=== PATIENT | female | born 1980 | race Two or more races ===

== ENCOUNTER 2016-07-30 21:01 | Emergency (ER) | payer OTHER ==
[2016-07-30 21:14] VITALS: BP 130/96
--- NOTE | 2016-07-30 21:25 | UC ---
Abdominal Pain Female HPI - HPI Summary HPI Summary: PT HAS HAD INTERMITTENT RUQ ABDOMINAL PAIN FOR SEVERAL MONTHS. NO CLEAR TRIGGER. DOES NOT SEEM TO BE ASSOCIATED WITH FOOD. SINCE YESTERDAY THE PAIN HAS GOTTEN A LOT WORSE AND IS RADIATING TO HER BACK. SHE HAS NAUSEA. NO FEVER. - History of Current Complaint Chief Complaint: UCAbdominalPain Stated Complaint: ABDOMINAL PAIN Time Seen by Provider: 07/30/16 21:16 Hx Obtained From: Patient Hx Last Menstrual Period: tubal, HYSTERECTOMY Onset/Duration: Gradual Onset, Lasting Days, Still Present Timing: Constant Severity Initially: Moderate Severity Currently: Moderate Pain Intensity: 8 Pain Scale Used: 0-10 Numeric Location: Discrete At: RUQ, Epigastric Radiates: Yes Radiates to: Back Character: Sharp Aggravating Factor(s): Nothing Alleviating Factor(s): Nothing Associated Signs and Symptoms: Positive: Back Pain, Nausea. Negative: Diaphoresis, Fever, Cough, Urinary Symptoms, Vomiting, Diarrhea Allergies/Adverse Reactions: Allergies Allergy/AdvReac Type Severity Reaction Status Date / Time No Known Allergies Allergy Verified 07/30/16 21:14 Home Medications: Home Medications Acetaminophen TAB* [Tylenol TAB*] 650 mg PO PRN 07/30/16 [History] PMH/Surg Hx/FS Hx/Imm Hx Previously Healthy: Yes Endocrine History Of: Denies: Thyroid Disease, Hyperthyroidism, Hypothyroidism, Dyslipidemia Comment Only: Diabetes - was taking metformin for fibroids in uterus Cardiovascular History Of: Denies: Cardiac Disorders, Hypertension, Pacemaker/ICD, Myocardial Infarction , Congestive Heart Failure, Atrial Fibrillation, Deep Vein Thrombosis, Bleeding Disorders Respiratory History Of: Denies: COPD, Asthma, Bronchitis, Pneumonia, Pulmonary Embolism GI/ History Of: Denies: Gastroesophageal Reflux, Ulcer, Gastrointestinal Bleed, Gall Bladder Disease, Kidney Stones, Diverticulitis, Renal Disease, Urosepsis Neurological History Of: Denies: TIA, CVA, Dementia, Seizures, Migraine Psychological History Of: Denies: Anxiety, Depression, Bipolar Disorder, Schizophrenia, Post Traumatic Stress Disorder Cancer History Of: Denies: Lung Cancer, Colorectal Cancer, Breast Cancer, Prostate Cancer, Cervical Cancer - Surgical History Surgical History: Yes Surgery Procedure, Year, and Place: TUBAL 1999,HYSTERECTOMY 2016 - Family History Known Family History: Positive: Cardiac Disease - "My Grandmother when she was in her late 60's", Other - MOTHER WITH MIGRAINES - Social History Alcohol Use: Occasionally Alcohol Amount: 1-2 bevg 1x e/o month Substance Use Type: None Smoking Status (MU): Never Smoked Tobacco Household Exposure Type: Cigarettes Review of Systems Constitutional: Negative Respiratory: Negative Cardiovascular: Negative Gastrointestinal: Abdominal Pain, Other - NAUSEA All Other Systems Reviewed And Are Negative: Yes Physical Exam Triage Information Reviewed: Yes Appearance: Well-Appearing, Well-Nourished, Pain Distress - MODERATE Vital Signs: Initial Vital Signs Temp 98.4 F 07/30/16 21:11 Pulse 73 07/30/16 21:11 Resp 16 07/30/16 21:11 BP 130/96 07/30/16 21:11 Pulse Ox 100 07/30/16 21:11 Vital Signs Reviewed: Yes Eyes: Positive: Conjunctiva Clear ENT: Positive: Hearing grossly normal Neck: Positive: Supple Respiratory Exam: Normal Cardiovascular Exam: Normal Abdomen Description: Positive: Soft, Other: - TTP RUQ/EPIGASTRIC AREAS. NO GUARDING, NO REBOUND, NO RIGIDITY. NEG BARKER'S. Negative: CVA Tenderness (R), CVA Tenderness (L), Distended, Guarding Bowel Sounds: Positive: Present Musculoskeletal: Positive: No Edema Neurological: Positive: Alert Psychological: Positive: Age Appropriate Behavior Skin: Negative: rashes Abd Pain Female Course/Dx - Differential Dx/Diagnosis Differential Diagnosis: Gall Bladder Disease, Pancreatitis Provider Diagnoses: RUQ/EPIGASTRIC ABDOMINAL PAIN - Physician Notification/Consults Discussed Patient Care With: DR. DUNBAR Time Discussed With Above Provider: 21:28 Instructed by Provider To: Transfer - TO [facility] BY PRIVATE CAR Discharge - Discharge Plan Condition: Stable Disposition: TRANS [facility] Referrals: Lesvia Sun MD [Primary Care Provider] -
== END 2016-07-30 21:28 | disposition short-term general hospital (02) ==
LOC: UCEAST 21:01
DX: R11.0 Nausea (principal); R10.11 Right upper quadrant pain; R10.13 Epigastric pain; M54.9 Dorsalgia, unspecified; Z77.22 Contact with and (suspected) exposure to environmental tobacco smoke (acute) (chronic)
CPT/HCPCS: 99212; G0463

== ENCOUNTER 2016-07-30 21:44 | Emergency (ER) | payer OTHER ==
[2016-07-30 22:25] LABS: Hematocrit 40 % (35-47); Hemoglobin 13.2 g/dl (12.0-16.0); Mean Corpuscular HGB Conc 33 g/dl (31-36); Mean Corpuscular Hemoglobin 28 pg (27-31); Mean Corpuscular Volume 86 fL (80-97); Mean Platelet Volume 8 um3 (7.4-10.4); Red Blood Count 4.73 10^6/ul (4.0-5.4); Red Cell Distribution Width 14 % (10.5-15); White Blood Count 9.1 10^3/ul (3.5-10.8)
[2016-07-30] MEDS ORDERED: Lidocaine 2% VISCOUS* 15 ML UDC PO ONE (22:31)
[2016-07-30] MEDS ORDERED: Al Hydrox/Mg Hydrox/Simet LIQ* 30 ML UDC PO ONE (22:31)
[2016-07-30 22:45] LABS: ALT 17 U/L (7-52); AST 9 U/L (13-39); Albumin 4.4 g/dL (3.2-5.2); Alkaline Phosphatase 79 U/L (34-104); Anion Gap 6 mmol/L (2-11); BUN/Creatinine Ratio 22.7 (8-20); Blood Urea Nitrogen 15 mg/dL (6-24); C Reactive Protein 2.91 mg/L (< 5.00); CO2 Carbon Dioxide 26 mmol/L (22-32); Calcium 9.7 mg/dL (8.6-10.3); Chloride 103 mmol/L (101-111); EGFR African American 131.1 (>60); EGFR Non-African American 101.9 (>60); Glucose 103 mg/dL (70-100); Lipase 23 U/L (11.0-82.0); Potassium 3.7 mmol/L (3.5-5.0); Sodium 135 mmol/L (133-145); Total Protein 7.4 g/dL (6.4-8.9)
[2016-07-30] MEDS ORDERED: Omeprazole CAP* 20 MG PO ONE (22:56)
[2016-07-30] MEDS ORDERED: Famotidine IV* 10 MG/ML 2 ML (20 mg) IV SLOW PU ONE (22:56)
--- NOTE | 2016-07-30 23:10 | ED ---
Abdominal Pain/Female - HPI Summary HPI Summary: Pt here w/ RUQ ab pain x > 1 year. Noticed pain started after she fell at work in March 2015. Pain is worse w/ torso rotation as well as with drinking ETOH the other night. Denies trouble eating/drinking in general despite mild nausea. No vomiting, no diarrhea, no dark tarry stool and no hematochezia. She has had workup for this pain starting with labs, US and CT scan. She also had a HIDA CCK. All have been normal. She was scheduled in September to have an endoscopy but couldn't make it and never called to cancel or reschedule. She reports she's just been dealing with the pain - has not tried anything, not even a tums. S/p hysterectomy d/t menorrhagia - still has ovaries. Had a TVUS 3 weeks ago which was normal. Also has fam h/o ovarian ca so pt is pending results of CA 125 lab - pt plans on attending f/u for results. No urinary sx. Breathing well although deep breath can sometimes also trigger pain. - History of Current Complaint Chief Complaint: EDAbdPain Stated Complaint: ABD PAIN/CONV CARE Time Seen by Provider: 07/30/16 21:59 Hx Obtained From: Patient Hx Last Menstrual Period: tubal, HYSTERECTOMY Pain Intensity: 8 Allergies/Adverse Reactions: Allergies Allergy/AdvReac Type Severity Reaction Status Date / Time No Known Allergies Allergy Verified 07/30/16 21:14 PMH/Surg Hx/FS Hx/Imm Hx Previously Healthy: Yes Endocrine/Hematology History: Reports: Other Endocrine/Hematological Disorders - was taking metformin for fibroids in uterus Denies: Hx Anticoagulant Therapy, Hx Blood Disorders, Hx Bone Marrow Disease , Hx Thyroid Disease, Hx Anemia Cardiovascular History: Denies: Hx Congestive Heart Failure, Hx Deep Vein Thrombosis, Hx Hypertension , Hx Myocardial Infarction, Hx Pacemaker/ICD Respiratory History: Denies: Hx Asthma, Hx Chronic Obstructive Pulmonary Disease (COPD), Hx Lung Cancer, Hx Pneumonia, Hx Pulmonary Embolism GI History: Denies: Hx Cirrhosis, Hx Crohn's Disease, Hx Diverticulosis, Hx Gall Bladder Disease, Hx Gastroesophageal Reflux Disease, Hx Gastrointestinal Bleed, Hx Hiatal Hernia, Hx Irritable Bowel, Hx Obstructive Bowel, Hx Ulcer, Hx Urosepsis History: Denies: Hx Kidney Stones, Hx Renal Disease Sensory History: Denies: Hx Contacts or Glasses, Hx Hearing Aid Opthamlomology History: Denies: Hx Contacts or Glasses Neurological History: Denies: Hx Dementia, Hx Migraine, Hx Seizures, Hx Transient Ischemic Attacks (TIA) Psychiatric History: Denies: Hx Anxiety, Hx Depression, Hx Schizophrenia, Hx Bipolar Disorder - Cancer History Cancer Type, Location and Year: right breast biopsy (neg for CA) - Surgical History Surgery Procedure, Year, and Place: TUBAL 2000,HYSTERECTOMY 2016 Hx Anesthesia Reactions: No Infectious Disease History: No Infectious Disease History: Denies: Hx Clostridium Difficile, Hx Hepatitis, Hx Human Immunodeficiency Virus (HIV), Hx of Known/Suspected MRSA, Hx Shingles, Hx Tuberculosis, Hx Known/ Suspected VRE, Hx Known/Suspected VRSA, History Other Infectious Disease, Traveled Outside the [place] in Last 30 Days - Family History Known Family History: Positive: Cardiac Disease - "My Grandmother when she was in her late 60's", Other - MOTHER WITH MIGRAINES - Social History Occupation: Employed Full-time Lives: With Family Alcohol Use: Occasionally Alcohol Amount: 1-2 bevg 1x e/o month Hx Substance Use: No Substance Use Type: Reports: None Hx Tobacco Use: No Smoking Status (MU): Never Smoked Tobacco Review of Systems Negative: Fever, Chills Negative: Chest Pain Negative: Shortness Of Breath, Cough Gastrointestinal: Other - see HPI Positive: see HPI Musculoskeletal: Other - see HPI Negative: Rash, Bruising Neurological: Negative Psychological: Normal All Other Systems Reviewed And Are Negative: Yes Physical Exam Triage Information Reviewed: Yes Vital Signs On Initial Exam: Initial Vitals Temp Pulse Resp BP Pulse Ox 97.8 F 88 18 129/72 100 07/30/16 21:54 07/30/16 21:54 07/30/16 21:54 07/30/16 21:54 07/30/16 21:54 Vital Signs Reviewed: Yes Appearance: Positive: Well-Appearing - appears fatigued, Obese Skin: Positive: Warm, Dry Head/Face: Positive: Normal Head/Face Inspection Eyes: Positive: Normal, EOMI, Conjunctiva Clear - anicteric sclera ENT: Positive: Hearing grossly normal, Pharynx normal - mucosa moist Neck: Positive: Supple, Nontender Respiratory/Lung Sounds: Positive: Clear to Auscultation, Breath Sounds Present. Negative: Rales, Rhonchi, Stridor, Wheezes Cardiovascular: Positive: Normal, RRR, S1, S2. Negative: Murmur, Rub Abdomen Description: Positive: No Organomegaly, Soft, Other: - RUQ and epigastric TTP - no rebounding Bowel Sounds: Positive: Present Pelvic Exam: Positive: other - deferred d/t recent testing Musculoskeletal: Positive: Normal, Strength/ROM Intact Neurological: Positive: Normal, Sensory/Motor Intact, Alert, Oriented to Person Place, Time, CN Intact II-III Psychiatric: Positive: Normal Diagnostics - Vital Signs Vital Signs Temp Pulse Resp BP Pulse Ox 07/30/16 21:54 97.8 F 88 18 129/72 100 - Laboratory Lab Results: Lab Results 07/30/16 07/30/16 07/30/16 Range/Units 22:10 22:10 22:10 WBC 9.1 (3.5-10.8) 10^3/ul RBC 4.73 (4.0-5.4) 10^6/ul Hgb 13.2 (12.0-16.0) g/dl Hct 40 (35-47) % MCV 86 (80-97) fL MCH 28 (27-31) pg MCHC 33 (31-36) g/dl RDW 14 (10.5-15) % Plt Count 265 (150-450) 10^3/ul MPV 8 (7.4-10.4) um3 Neut % (Auto) 55.1 (38-83) % Lymph % (Auto) 33.2 (25-47) % Valencia % (Auto) 6.9 (1-9) % Eos % (Auto) 3.9 (0-6) % Baso % (Auto) 0.9 (0-2) % Absolute Neuts (auto) 5.0 (1.5-7.7) 10^3/ul Absolute Lymphs (auto) 3.0 (1.0-4.8) 10^3/ul Absolute Monos (auto) 0.6 (0-0.8) 10^3/ul Absolute Eos (auto) 0.4 (0-0.6) 10^3/ul Absolute Basos (auto) 0.1 (0-0.2) 10^3/ul Absolute Nucleated RBC 0.01 10^3/ul Nucleated RBC % 0.1 Sodium 135 (133-145) mmol/L Potassium 3.7 (3.5-5.0) mmol/L Chloride 103 (101-111) mmol/L Carbon Dioxide 26 (22-32) mmol/L Anion Gap 6 (2-11) mmol/L BUN 15 (6-24) mg/dL Creatinine 0.66 (0.51-0.95) mg/dL Est GFR ( Amer) 131.1 (>60) Est GFR (Non-Af Amer) 101.9 (>60) BUN/Creatinine Ratio 22.7 H (8-20) Glucose 103 H (70-100) mg/dL Lactic Acid 0.9 (0.5-2.0) mmol/L Calcium 9.7 (8.6-10.3) mg/dL Total Bilirubin 0.30 (0.2-1.0) mg/dL AST 9 L (13-39) U/L ALT 17 (7-52) U/L Alkaline Phosphatase 79 (34-104) U/L C-Reactive Protein 2.91 (< 5.00) mg/L Total Protein 7.4 (6.4-8.9) g/dL Albumin 4.4 (3.2-5.2) g/dL Globulin 3.0 (2-4) g/dL Albumin/Globulin Ratio 1.5 (1-3) Lipase 23 (11.0-82.0) U/L Beta HCG, Quant < 0.60 mIU/mL Result Diagrams: 07/30/16 22:10 07/30/16 22:10 Lab Statement: Any lab studies that have been ordered have been reviewed, and results considered in the medical decision making process. Re-Evaluation - Re-Evaluation First Eval Change: Improved Abdominal Pain Fem Course/Dx - Course Course Of Treatment: Pt presents w/ RUQ and epigastric ab pain x > 1 year. She' s had multiple tests done and was supposed to have an endoscopy in September, however missed this appointment and never rescheduled. She has a h/o GERD and some relief w/ TUMS over the past 2 weeks. No clinical concern for acute GI hemorrhage based on HPI, labs and vital signs. Pt had some relief w/ GI cocktail in combination with PPI and H2 bonnie tonight. D/c'd home w/ instructions to call GI tomorrow to reschedule endoscope. Reviewed danger s/sx of when to return to ED. Pt agrees w/ plan and voices understanding. NOTE: again, pt plans to f/u w/ [employer] re: ovarian ca testing. - Diagnoses Provider Diagnoses: Abdominal pain - Provider Notifications Discussed Care Of Patient With: Dr. Castano Discharge - Discharge Plan Condition: Stable Disposition: HOME Prescriptions: Famotidine TAB* [Pepcid TAB*] 20 mg PO DAILY #14 tab Omeprazole CAP* [Prilosec CAP* 20 MG] 20 mg PO BID #28 cap.dr Patient Education Materials: Gastroesophageal Reflux Disease (ED), Abdominal Pain (ED) Referrals: Lesvia Sun MD [Primary Care Provider] - Additional Instructions: The cause of your abdominal pain is unknown however you had some relief with maalox, pepcid and prilosec today. You may possibly have an ulcer so these medications should be taken daily for 2 weeks. Avoid NSAID's and foods that may trigger pain (ie. greasy, spicy, acidic foods). Follow-up with gastroenterology this week for a scope of your upper GI tract. *If you develop worsening of pain, vomiting, rectal bleeding/black stools, fever , chest pain, or difficulty breathing, return to ED
[2016-07-31 00:24] VITALS: BP 121/74
== END 2016-07-31 00:22 | disposition home or self-care (01) ==
LOC: ED 21:44
DX: R10.11 Right upper quadrant pain (principal); R10.13 Epigastric pain; Z87.19 Personal history of other diseases of the digestive system
CPT/HCPCS: 36415; 80053; 83605; 83690; 84702; 85025; 86140; 96374; 99284; A9270-GY

== ENCOUNTER 2017-10-12 19:13 | Emergency (ER) | payer OTHER ==
--- OUTSIDE RECORDS SUMMARY | 2017-10-12 19:19 | XMS REPORT ---
:1980 Author Name sound, ultra Care Team Providers Name Role Phone sound, ultra Unavailable Unavailable PROBLEMS Type Condition ICD9-CM Code RLS91-SP Code Onset Condition SNOMED Code Dates Status Problem Polycystic E28.2 Active 55867327 ovarian syndrome Problem Dyspareunia N94.1 Active 59817062 Problem Constipation, K59.00 Active 30585904 unspecified Problem Other specified N94.19 Active 31214825 dyspareunia Problem Low back pain M54.5 Active 502281143 Problem Anal spasm K59.4 Active 47004709 Problem Other abnormal R92.8 Active 118488882 and inconclusive findings on diagnostic imaging of breast Problem Family history of Z80.41 Active 603783321 malignant neoplasm of ovary ALLERGIES No Information ENCOUNTERS Encounter Location Date Diagnosis [facility] Feb, [place] [id number] [facility] Feb, [place] [id number] [facility] Aug, Family history of OBGYN [facility], malignant neoplasm of [place] [id number] ovary Z80.41 ; Encounter for screening for infections with a predominantly sexual mode of transmission Z11.3 ; Pelvic and perineal pain R10.2 ; Acute vaginitis N76.0 ; Constipation, unspecified K59.00 and Other specified dyspareunia N94.19 [facility] Aug, Family history of OBGYN [facility], malignant neoplasm of [place] [id number] ovary Z80.41 [facility] Jul, [place]BG[place] [id number] [facility] Jul, [place] [id number] [facility] 14 Jul, 2017 [place] [id number] [facility] Jun, [place] [id number] [facility] Jun, [place] [id number] [address] Jun, Encounter for [address] [place] [address], gynecological examination [place] [id number] (general) (routine) without abnormal findings Z01.419 ; Family history of malignant neoplasm of ovary Z80.41 ; Anal spasm K59.4 and Encounter for screening for infections with a predominantly sexual mode of transmission Z11.[address] Jun, OBGYN [address] [id number] [facility] Apr, [place]BG[place], [place] [id number] [facility] Feb, Other abnormal and OBGYN [facility], inconclusive findings on [place] [id number] diagnostic imaging of breast R92.8 [facility] Dec, [place]BG[place], [place] [id number] [facility] Dec, Family history of OBGYN [facility], malignant neoplasm of [place] [id number] ovary Z80.41 and Anal spasm K59.4 [facility] Dec, Family history of OBGYN [facility], malignant neoplasm of [place] [id number] ovary Z80.[address] Aug, Other specified [address]BG[address] [place] [address], noninflammatory disorders [place] [id number] of vagina N89.8 ; Anal spasm K59.4 ; Dyspareunia N94.1 and Acute vulvitis N76.[address] Aug, Family history of OBGYN [address] [place] [address], malignant neoplasm of [place] [id number] ovary Z80.41 [facility] Aug, [place] [id number] [facility] Jul, [place] [id number] [facility] Jul, [place] [id number] [facility] Jun, [place] [id number] [facility] Jun, Other [facility] inconclusive findings on [place] [id number] diagnostic imaging of breast R92.[address] May, Encounter for OBGYN [address] [place] [address], gynecological examination [place] [id number] (general) (routine) without abnormal findings Z01.419 ; Family history of malignant neoplasm of ovary Z80.41 ; Anal spasm K59.4 ; Polycystic ovarian syndrome E28.2 and Mastodynia N64.4 [facility] May, [place]BGYN [place], [place] [id number] [facility] May, Dysuria R30.0 ; Anal spasm OBGYN [facility], K59.4 and Low back pain [place] [id number] M54.5 [facility] May, [place] [place] [id number] [facility] [address] May, Dysuria R30.0 ; Anal spasm OBGYN [address] [place] [address], K59.4 and Low back pain [place] [id number] M54.5 [place] [facility] [address] [place] [address] Mar, Anal spasm K59.[address] [place], back pain M54.5 [place] [id number] [facility] Nov, [place] [id number] [facility] Nov, Low back pain M54.5 [place] [id number] [facility] [address] [place] [address] [place] Nov, Anal spasm K59.4 ; OBGYN [address] [place], Abnormal uterine and [place] [id number] vaginal bleeding, unspecified N93.9 ; Low back pain M54.5 and Polycystic ovarian syndrome E28.2 [place] [address] [place] [address] [place] October, Cellulitis of abdominal OBGYN [address] [place], wall L03.311 and Abnormal [place] [id number] uterine and vaginal bleeding, unspecified N93.9 [place] [facility] October, [place] [id number] [facility] October, Hematuria, unspecified OBGYN [facility], R31.9 [place] [id number] [place] [facility] [address] [place] [address] [facility] October, Dysuria R30.[address] [place], spasm K59.4 [place] [id number] [facility] [address] [place], Sep, [facility] [place] [id number] [facility] [address] [place] Sep, [facility] [place] [id number] [facility] Sep, [place] [id number] [facility] Sep, [place] [id number] [facility] Sep, Candidiasis of vulva and OBGYN [facility], vagina B37.3 [place] [id number] [place] [facility] 14 Sep, 2015 [place]BG[place], [place] [id number] [facility] 13 Sep, 2015 Other specified abnormal OBGYN [facility], uterine and vaginal [place] [id number] bleeding N93.8 ; Leiomyoma of uterus, unspecified D25.9 ; Other specified noninflammatory disorders of vagina N89.8 and Pain, unspecified R52 [place] [facility] 13 Sep, 2015 Leiomyoma of uterus, OBGYN [facility], unspecified D25.9 [place] [id number] [place] [facility] [address] [place] Aug, Polycystic ovarian [address]BGYN [address] [place], syndrome E28.2 [place] [id number] [facility] Jul, Polycystic ovarian OBG[facility], syndrome E28.2 [place] [id number] [place] [facility] Jun, [place] [id number] [facility] [facility] Jun, Polycystic ovarian OBGYN [facility], syndrome E28.2 [place] [id number] [facility] Jun, [place] [id number] [place] [facility] [address] [place] Jun, Other specified abnormal [address]BG[address] [place], uterine and vaginal [place] [id number] bleeding N93.8 ; Leiomyoma of uterus, unspecified D25.9 ; Acute vulvitis N76.2 and Polycystic ovarian syndrome E28.2 [place] [facility] [address] [place] Jun, Acute vulvitis N76.[address] [place], [place] [id number] [facility] [address] [place], Jun, [facility] [place] [id number] [place] [facility] [address] [place] May, Other specified abnormal [address]BG[address] [place], uterine and vaginal [place] [id number] bleeding N93.8 ; Leiomyoma of uterus, unspecified D25.9 ; Acute vulvitis N76.2 and Polycystic ovarian syndrome E28.[address] [facility] May, [place] [id number] [facility] May, [facility] [id number] [facility] [address] [place] [address] May, Other specified abnormal [address]BGYN [address] [place], uterine and vaginal [place] [id number] bleeding N93.8 ; Leiomyoma of uterus, unspecified D25.9 ; Acute vulvitis N76.2 and Polycystic ovarian syndrome E28.2 [facility] Apr, Other specified abnormal OBGYN [facility], uterine and vaginal [place] [id number] bleeding N93.8 ; Leiomyoma of uterus, unspecified D25.9 and Acute vulvitis N76.2 [facility] Apr, Leiomyoma of uterus, OBGYN [facility], unspecified D25.9 and [place] [id number] Other specified abnormal uterine and vaginal bleeding N93.8 [facility] Apr, Other specified abnormal OBGYN [facility], uterine and vaginal [place] [id number] bleeding N93.8 and Leiomyoma of uterus, unspecified D25.9 [facility] Apr, [facility]YN [facility] [id number] [facility] Apr, Leiomyoma of uterus, OBGYN [facility], unspecified D25.9 ; [place] [id number] Dyspareunia N94.1 ; Other specified abnormal uterine and vaginal bleeding N93.8 and Polycystic ovarian syndrome E28.2 [facility] Apr, Leiomyoma of uterus, OBGYN [facility], unspecified D25.9 ; Other [place] [id number] specified abnormal uterine and vaginal bleeding N93.8 and Dyspareunia N94.1 [facility] Mar, Leiomyoma of uterus, OBGYN [facility], unspecified D25.9 ; [place] [id number] Dyspareunia N94.1 and Other specified abnormal uterine and vaginal bleeding N93.8 [facility] 18 Mar, 2015 [place]BG[place], [place] [id number] IMMUNIZATIONS No Known Immunizations SOCIAL HISTORY Never Assessed REASON FOR REFERRAL FUNCTIONAL STATUS PLAN OF CARE VITAL SIGNS MEDICATIONS Unknown Medications PROCEDURES Procedure Date Ordered Result Body Site TRANSVAGINAL US, NON-OB September 18, 2017 RESULTS Name Result Date Reference Range Ultrasound : Pelvis REASON FOR VISIT U/S MEDICAL (GENERAL) HISTORY Type Description Date Medical History diabetes Surgical History lumpectomy - benign 2013 Surgical History Hysteroscopy/D&C 07-01-15 Surgical History [facility] with cold knife extraction of fibroid uterus, , 09/2015 cystoscopy Hospitalization History childbirth 1995 Hospitalization History childbirth 1996 Hospitalization History childbirth 1998 Hospitalization History childbirth 1999
--- OUTSIDE RECORDS SUMMARY | 2017-10-12 19:20 | XMS REPORT ---
:1980 Author Organization [facility] Address [address] [place] [address] Care Team Providers Name Role Phone Graciela Davison Unavailable Unavailable PROBLEMS Type Condition ICD9-CM Code XFG83-CK Code Onset Condition SNOMED Code Dates Status Problem Polycystic E28.2 Active 85488055 ovarian syndrome Problem Dyspareunia N94.1 Active 17760081 Problem Constipation, K59.00 Active 05072485 unspecified Problem Other specified N94.19 Active 40976240 dyspareunia Problem Low back pain M54.5 Active 189052918 Problem Anal spasm K59.4 Active 40382027 Problem Other abnormal R92.8 Active 004337314 and inconclusive findings on diagnostic imaging of breast Problem Family history of Z80.41 Active 078026499 malignant neoplasm of ovary ALLERGIES No Known Allergies ENCOUNTERS Encounter Location Date Diagnosis [facility] [address] Feb, [place]BGYN [place] [id number] [facility] Feb, OBG[place] [id number] [facility] 103 Aug, Family history of OBGYN [facility], malignant neoplasm [place] [id number] ovary Z80.41 ; Encounter for screening for infections with a predominantly sexual mode of transmission Z11.3 ; Pelvic and perineal pain R10.2 ; Acute vaginitis N76.0 ; Constipation, unspecified K59.00 and Other specified dyspareunia N94.19 [facility] 103 Aug, Family history of OBGYN [facility], malignant neoplasm [place] [id number] ovary Z80.41 [facility] 103 Jul, [place] [id number] [facility] 103 Jul, [place] [id number] [facility] 103 Jul, [place] [id number] [place] [facility] 103 Jun, [place] [id number] [facility] 103 Jun, [place] [id number] [facility] [address] Jun, Encounter for OBG[address] [place], gynecological examination [place] [id number] (general) (routine) without abnormal findings Z01.419 ; Family history of malignant neoplasm of ovary Z80.41 ; Anal spasm K59.4 and Encounter for screening for infections with a predominantly sexual mode of transmission Z11.[address] Jun, OBGY [address] [place] [id number] [facility] 103 Apr, OBGYN [place] [id number] [facility] 103 Feb, Other abnormal and OBGYN [facility], inconclusive findings on [place] [id number] diagnostic imaging of breast R92.8 [facility] 103 Dec, OBGYN [place] [id number] [facility] 103 Dec, Family history of OBGYN [facility], malignant neoplasm of [place] [id number] ovary Z80.41 and Anal spasm K59.4 [facility] 103 Dec, Family history of OBGYN [facility], malignant neoplasm [place] [id number] ovary Z80.[address] Aug, Other [facility] [address] [place], noninflammatory disorders [place] [id number] of vagina N89.8 ; Anal spasm K59.4 ; Dyspareunia N94.1 and Acute vulvitis N76.2 [facility] [address] [place] [address] Aug, Family history of OBGYN Road [address] [place] [address], malignant neoplasm of [place] [id number] ovary Z80.41 [place] [facility] 103 Aug, [place] [id number] [place] [facility] 103 Jul, [place] [id number] [place] [facility] 103 Jul, [place], [place] [id number] [place] [facility] 103 Jun, [place] [id number] [place] [facility] 103 Jun, Other abnormal and OBGYN [facility], inconclusive findings on [place] [id number] diagnostic imaging of breast R92.[address] May, Encounter for OBGYN Road [address] [place] [address], gynecological examination [place] [id number] (general) (routine) without abnormal findings Z01.419 ; Family history of malignant neoplasm of ovary Z80.41 ; Anal spasm K59.4 ; Polycystic ovarian syndrome E28.2 and Mastodynia N64.4 [place] [facility] 103 May, [place]BG[place] [id number] [place] [facility] 103 May, Dysuria R30.0 ; Anal spasm OBGYN [facility], K59.4 and Low back pain [place] [id number] M54.5 [place] [facility] 103 May, OBGYN [place] [id number] [place] [facility] [facility] May, Dysuria R30.0 ; Anal spasm OBGYN Road [address] [place] [address], K59.4 and Low back pain [place] [id number] M54.5 [facility] Mar, Anal spasm K59.[address] [place], back pain M54.5 [place] [id number] [place] [facility] 103 Nov, OBG[place] [id number] [place] [facility] 103 Nov, Low back pain M54.5 [place] [id number] [place] [facility] [address] Nov, Anal spasm K59.4 ; OBGYN [address] [place], Abnormal uterine and [place] [id number] vaginal bleeding, unspecified N93.9 ; Low back pain M54.5 and Polycystic ovarian syndrome E28.2 [place] [facility] [address] October, Cellulitis of abdominal OBGYN Road [address] [place], wall L03.311 and Abnormal [place] [id number] uterine and vaginal bleeding, unspecified N93.9 [facility] 103 October, OBG[place], [place] [id number] [facility] 103 October, Hematuria, unspecified OBGYN [facility], R31.9 [place] [id number] [place] [facility] [address] [place] [address] [place] October, Dysuria R30.[address] [place], spasm K59.4 [place] [id number] [facility] [facility] [address] [place], Sep, Medical [place] [id number] [facility] [address] [place], Sep, Medical [place] [id number] [facility] 103 Sep, OBGYN [place] [id number] [place] [facility] 103 Sep, [place] [id number] [place] [facility] 103 Sep, Candidiasis of vulva and OBGYN [facility], vagina B37.3 [place] [id number] [place] [facility] 103 14 Sep, 2015 OBGYN [place] [id number] [place] [facility] 103 13 Sep, 2015 Other specified abnormal OBGYN [facility], uterine and vaginal [place] [id number] bleeding N93.8 ; Leiomyoma of uterus, unspecified D25.9 ; Other specified noninflammatory disorders of vagina N89.8 and Pain, unspecified R52 [place] [facility] 103 13 Sep, 2015 Leiomyoma of uterus, OBGYN [facility], unspecified D25.9 [place] [id number] [place] [facility] [address] [place] [address] Aug, Polycystic ovarian OBGYN [address] [place], syndrome E28.2 [place] [id number] [facility] 103 Jul, Polycystic ovarian OBGYN [facility], syndrome E28.2 [place] [id number] [facility] 103 Jun, [place] [id number] [facility] 103 Jun, Polycystic ovarian OBGYN [facility], syndrome E28.2 [place] [id number] [facility] 103 Jun, OBGYN [place] [id number] [facility] Jun, Other specified abnormal OBGYN [address] [place], uterine and vaginal [place] [id number] bleeding N93.8 ; Leiomyoma of uterus, unspecified D25.9 ; Acute vulvitis N76.2 and Polycystic ovarian syndrome E28.2 [place] [facility] [address] [place] [address] Jun, Acute vulvitis N76.[address] [place] [id number] [facility] [address] [place], Jun, Medical [place] [id number] [facility] May, Other specified abnormal OBGYN [address] [place], uterine and vaginal [place] [id number] bleeding N93.8 ; Leiomyoma of uterus, unspecified D25.9 ; Acute vulvitis N76.2 and Polycystic ovarian syndrome E28.2 [facility] 103 May, OBG[place], [place] [id number] [facility] 103 May, OBG[place], [place] [id number] [place] [facility] [address] [place] [address] May, Other specified abnormal OBGYN [address] [place], uterine and vaginal [place] [id number] bleeding N93.8 ; Leiomyoma of uterus, unspecified D25.9 ; Acute vulvitis N76.2 and Polycystic ovarian syndrome E28.2 [facility] 103 Apr, Other specified abnormal OBGYN [facility], uterine and vaginal [place] [id number] bleeding N93.8 ; Leiomyoma of uterus, unspecified D25.9 and Acute vulvitis N76.2 [facility] 103 Apr, Leiomyoma of uterus, OBGYN [facility], unspecified D25.9 and [place] [id number] Other specified abnormal uterine and vaginal bleeding N93.8 [facility] 103 Apr, Other specified abnormal OBGYN [facility], uterine and vaginal [place] [id number] bleeding N93.8 and Leiomyoma of uterus, unspecified D25.9 [facility] 103 Apr, OBG[facility] [place] [id number] [facility] 103 Apr, Leiomyoma of uterus, OBGYN [facility], unspecified D25.9 ; [place] [id number] Dyspareunia N94.1 ; Other specified abnormal uterine and vaginal bleeding N93.8 and Polycystic ovarian syndrome E28.2 [facility] 103 Apr, Leiomyoma of uterus, OBGYN [facility], unspecified D25.9 ; Other [place] [id number] specified abnormal uterine and vaginal bleeding N93.8 and Dyspareunia N94.1 [facility] 103 Mar, Leiomyoma of uterus, OBGYN [facility], unspecified D25.9 ; [place] [id number] Dyspareunia N94.1 and Other specified abnormal uterine and vaginal bleeding N93.8 [facility] 103 18 Mar, 2015 OBGYN [place], [place] [id number] IMMUNIZATIONS No Known Immunizations SOCIAL HISTORY Never Assessed REASON FOR REFERRAL FUNCTIONAL STATUS PLAN OF CARE Activity Details Follow Up 6 Months US w/fu Reason: Pending Test Leukorrhea Panel by Swab {contains Margie Gardnerella Trich CTNG} Pending Test HSV1/2 by Swab Pending Test URINE CULTURE Pending Test UA RFX MICRO & CULTURE II VITAL SIGNS Height 60 in 2017-09-18 Weight 170 lbs 2017-09-18 BMI 33.20 kg/m2 2017-09-18 Blood pressure systolic 120 mm Hg 2017-09-18 Blood pressure diastolic 66 mm Hg 2017-09-18 MEDICATIONS Unknown Medications PROCEDURES No Known procedures RESULTS No Results REASON FOR VISIT u/s f/u, Painful intercourse, Lower back pain, Pain left ovary MEDICAL (GENERAL) HISTORY Type Description Date Medical History diabetes Surgical History lumpectomy - benign 2013 Surgical History Hysteroscopy/D&C 07-01-15 Surgical History [facility] with cold knife extraction of fibroid uterus, , 09/2015 cystoscopy Hospitalization History childbirth 1995 Hospitalization History childbirth 1996 Hospitalization History childbirth 1998 Hospitalization History childbirth 1999
--- NOTE | 2017-10-12 19:23 | UC ---
Throat Pain/Nasal Balwinder HPI - HPI Summary HPI Summary: Patient urgent care today with complaint sore throat day 2 - History of Current Complaint Chief Complaint: UCRespiratory Stated Complaint: THROAT PAIN Time Seen by Provider: 10/12/17 19:22 Hx Obtained From: Patient Hx Last Menstrual Period: tubal, HYSTERECTOMY ?: No Onset/Duration: Sudden Onset, Lasting Days - 2 Severity: Moderate Pain Intensity: 7 Pain Scale Used: 0-10 Numeric Cough: None - Allergies/Home Medications Allergies/Adverse Reactions: Allergies Allergy/AdvReac Type Severity Reaction Status Date / Time No Known Allergies Allergy Verified 10/12/17 19:23 PMH/Surg Hx/FS Hx/Imm Hx Previously Healthy: Yes Other History Of: Negative For: Anticoagulant Therapy - Surgical History Surgical History: Yes Surgery Procedure, Year, and Place: TUBAL 1999,HYSTERECTOMY 2015 - Family History Known Family History: Positive: Cardiac Disease - "My Grandmother when she was in her late 60's", Other - MOTHER WITH MIGRAINES - Social History Occupation: Employed Full-time Lives: With Family Alcohol Use: Weekly Alcohol Amount: PT drinks wine a few times a week. Substance Use Type: None Smoking Status (MU): Never Smoked Tobacco Household Exposure Type: Cigarettes Review of Systems Constitutional: Negative Skin: Negative Eyes: Negative ENT: Negative, Sore Throat Respiratory: Negative Cardiovascular: Negative Gastrointestinal: Negative Genitourinary: Negative Motor: Negative Neurovascular: Negative Musculoskeletal: Negative Neurological: Negative Psychological: Negative Is Patient Immunocompromised?: No All Other Systems Reviewed And Are Negative: Yes Physical Exam Triage Information Reviewed: Yes Appearance: Well-Appearing, No Pain Distress, Well-Nourished Vital Signs Reviewed: Yes Eye Exam: Normal Eyes: Positive: Conjunctiva Clear ENT Exam: Normal ENT: Positive: Normal ENT inspection, Hearing grossly normal, Pharyngeal erythema, TMs normal, Tonsillar swelling, Uvula midline. Negative: Nasal congestion, Tonsillar exudate, Trismus, Muffled voice, Hoarse voice Dental Exam: Normal Neck exam: Normal Neck: Positive: Supple, Nontender, No Lymphadenopathy Respiratory Exam: Normal Respiratory: Positive: Chest non-tender, Lungs clear, Normal breath sounds, No respiratory distress, No accessory muscle use Cardiovascular Exam: Normal Cardiovascular: Positive: RRR, No Murmur, Pulses Normal, Brisk Capillary Refill Musculoskeletal Exam: Normal Musculoskeletal: Positive: Strength Intact, ROM Intact, No Edema Neurological Exam: Normal Neurological: Positive: Alert, Muscle Tone Normal Psychological Exam: Normal Psychological: Positive: Normal Response To Family Skin Exam: Normal Diagnostics - Laboratory Diagnostic Studies Completed/Ordered: RST + Throat Pain/Nasal Course/Dx - Course Assessment/Plan: Amoxicillin, ibuprofen increase fluids follow with pcp prn - Differential Dx/Diagnosis Provider Diagnoses: Strep pharyngitis Discharge - Sign-Out/Discharge Documenting (check all that apply): Discharge - Discharge Plan Condition: Stable Disposition: HOME Prescriptions: Amoxicillin PO (*) [Amoxicillin 875 MG (*)] 875 mg PO BID #20 tab Patient Education Materials: Ibuprofen (By mouth), Strep Throat (ED) Forms: *Work Release Referrals: Lesvia Sun MD [Primary Care Provider] - If Needed - Billing Disposition and Condition Condition: STABLE Disposition: HOME
[2017-10-12 19:29] VITALS: BP 125/94
[2017-10-12] MEDS ORDERED: Ibuprofen TAB* 600 MG PO ONE (19:49)
== END 2017-10-12 20:00 | disposition home or self-care (01) ==
LOC: UCEAST 19:13
DX: J02.0 Streptococcal pharyngitis (principal)
CPT/HCPCS: 87651; 99212; A9270-GY; G0463

== ENCOUNTER 2017-10-26 12:25 | Emergency (ER) | payer OTHER ==
[2017-10-26 12:47] VITALS: BP 112/78
[2017-10-26] MEDS ORDERED: Cyclobenzaprine TAB* 10 MG PO ONE (13:23)
[2017-10-26] MEDS ORDERED: Ketorolac INJ* 60 MG/2 ML VIAL IM ONE (13:23)
--- NOTE | 2017-10-26 13:41 | ED ---
Back Pain - HPI Summary HPI Summary: 37yo HF h/o LBP c/o sudden sharp left LBP radiating to B/L legs especially the left leg while putting on clothes s/p violent cough - History of Current Complaint Chief Complaint: UCBackPain Stated Complaint: BACK PAIN Time Seen by Provider: 10/26/17 12:58 Hx Obtained From: Patient Hx Last Menstrual Period: tubal, HYSTERECTOMY Onset/Duration: Sudden Onset Onset/Duration: Atraumatic Timing: Constant Severity Initially: Moderate Severity Currently: Severe Pain Intensity: 10 Character: Sharp, Stiffness Aggravating Symptom(s): Movement Alleviating Symptom(s): Rest Associated Signs And Symptoms: Positive: Negative - Allergies/Home Medications Allergies/Adverse Reactions: Allergies Allergy/AdvReac Type Severity Reaction Status Date / Time No Known Allergies Allergy Verified 10/26/17 12:38 Home Medications: Home Medications Natural Pill For Losing Weight 1 cap PO DAILY 10/26/17 [History Confirmed ] PMH/Surg Hx/FS Hx/Imm Hx Previously Healthy: Yes Endocrine/Hematology History: Reports: Other Endocrine/Hematological Disorders - was taking metformin for fibroids in uterus Denies: Hx Anticoagulant Therapy, Hx Blood Disorders, Hx Bone Marrow Disease , Hx Thyroid Disease, Hx Anemia Cardiovascular History: Denies: Hx Congestive Heart Failure, Hx Deep Vein Thrombosis, Hx Hypertension , Hx Myocardial Infarction, Hx Pacemaker/ICD, Other Cardiovascular Problems/ Disorders Respiratory History: Reports: Other Respiratory Problems/Disorders - allergies Denies: Hx Asthma, Hx Chronic Obstructive Pulmonary Disease (COPD), Hx Lung Cancer, Hx Pneumonia, Hx Pulmonary Embolism GI History: Denies: Hx Cirrhosis, Hx Crohn's Disease, Hx Diverticulosis, Hx Gall Bladder Disease, Hx Gastroesophageal Reflux Disease, Hx Gastrointestinal Bleed, Hx Hiatal Hernia, Hx Irritable Bowel, Hx Obstructive Bowel, Hx Ulcer, Hx Urosepsis History: Denies: Hx Kidney Stones, Hx Renal Disease Sensory History: Denies: Hx Contacts or Glasses, Hx Hearing Aid Opthamlomology History: Denies: Hx Contacts or Glasses Neurological History: Denies: Hx Dementia, Hx Migraine, Hx Seizures, Hx Transient Ischemic Attacks (TIA) Psychiatric History: Denies: Hx Anxiety, Hx Depression, Hx Schizophrenia, Hx Bipolar Disorder - Cancer History Cancer Type, Location and Year: right breast biopsy (neg for CA) - Surgical History Surgery Procedure, Year, and Place: TUBAL 2000,R breast biopsy 2014, HYSTERECTOMY 2016 Hx Anesthesia Reactions: No Infectious Disease History: No Infectious Disease History: Denies: Hx Clostridium Difficile, Hx Hepatitis, Hx Human Immunodeficiency Virus (HIV), Hx of Known/Suspected MRSA, Hx Shingles, Hx Tuberculosis, Hx Known/ Suspected VRE, Hx Known/Suspected VRSA, History Other Infectious Disease, Traveled Outside the [place] in Last 30 Days - Family History Known Family History: Positive: Cardiac Disease - "My Grandmother when she was in her late 60's", Other - MOTHER WITH MIGRAINES - Social History Alcohol Use: Occasionally Alcohol Amount: PT drinks wine a few times a week. Hx Substance Use: No Substance Use Type: Reports: None Hx Tobacco Use: No Smoking Status (MU): Never Smoked Tobacco Review of Systems Constitutional: Negative Eyes: Negative ENT: Negative Cardiovascular: Negative Respiratory: Negative Gastrointestinal: Negative Positive: Other - sudden left LBP All Other Systems Reviewed And Are Negative: Yes Physical Exam Triage Information Reviewed: Yes Vital Signs On Initial Exam: Initial Vitals Temp Pulse Resp BP Pulse Ox 36.8 C 78 20 112/78 99 10/26/17 12:39 10/26/17 12:39 10/26/17 12:39 10/26/17 12:39 10/26/17 12:39 Vital Signs Reviewed: Yes Appearance: Positive: Pain Distress Skin: Positive: Warm Head/Face: Positive: Normal Head/Face Inspection Eyes: Positive: Normal ENT: Positive: Normal ENT inspection Neck: Positive: Supple Respiratory/Lung Sounds: Positive: Clear to Auscultation Cardiovascular: Positive: Normal Musculoskeletal: Positive: Normal, Other - severe TTP left lower paraspinal muscles Neurological: Positive: Normal, CN Intact II-III, Other - straight leg positive for left >right Diagnostics - Vital Signs Vital Signs Temp Pulse Resp BP Pulse Ox 10/26/17 12:39 36.8 C 78 20 112/78 99 - Laboratory Lab Statement: Any lab studies that have been ordered have been reviewed, and results considered in the medical decision making process. Back Pain Course/Dx - Course Course Of Treatment: Pain improved with PO flexeril and IM Toradol. Take weekend off, control pain with muscle relaxants and Naproxen - Diagnoses Provider Diagnoses: Spasm of muscle of lower back Discharge - Sign-Out/Discharge Documenting (check all that apply): Discharge/Admit/Transfer - Discharge Plan Condition: Stable Disposition: HOME Prescriptions: Naproxen [Naprosyn 500 mg tab] 500 mg PO BID 10 Days #20 tablet Tizanidine HCl 4 mg PO BEDTIME 5 Days #5 capsule Patient Education Materials: Muscle Spasm (ED), Lumbar Radiculopathy (ED) Referrals: Lesvia Sun MD [Primary Care Provider] - - Billing Disposition and Condition Condition: STABLE Disposition: HOME
== END 2017-10-26 14:28 | disposition home or self-care (01) ==
LOC: UCEAST 12:25
DX: M62.830 Muscle spasm of back (principal)
CPT/HCPCS: 96372; 99212; A9270-GY; G0463; J1885

== ENCOUNTER 2017-12-08 18:00 | Emergency (ER) | payer OTHER ==
[2017-12-08 18:34] VITALS: BP 144/79
--- NOTE | 2017-12-08 18:40 | UC ---
Dizzy HPI HPI Summary: 37 yo female presents with dizziness. She tells me that around 1150 today at work she developed dizziness and chest pain. A nurse took her blood pressure there and was told it was 160/100 and that she should be seen. Pt came to urgent care for further eval. At the time of this interview, she denies chest pressure/pain, but does still feel slightly dizzy - but much better than earlier. She tells me that she started a new hormone medication about 10 days ago for a skin issue and wonders if this could be causing her symptoms today. Denies fever, chills, recent illness, SOB, abdominal pain, n/v. - History Of Current Complaint Chief Complaint: UCChestPain Stated Complaint: HIGH BLOOD PRESSURE,DIZZY Time Seen by Provider: 12/08/17 18:13 Hx Obtained From: Patient Hx Last Menstrual Period: tubal, HYSTERECTOMY Onset/Duration: Sudden Onset Severity Initially: Mild Severity Currently: None Pain Intensity: 0 - Allergies/Home Medications Allergies/Adverse Reactions: Allergies Allergy/AdvReac Type Severity Reaction Status Date / Time No Known Allergies Allergy Verified 12/08/17 18:34 Home Medications: Home Medications Hormone 12/08/17 [History] PMH/Surg Hx/FS Hx/Imm Hx - Additional Past Medical History Additional PMH: Chronic skin allergy Previously Healthy: Yes Other History Of: Negative For: Anticoagulant Therapy - Surgical History Surgical History: Yes Surgery Procedure, Year, and Place: TUBAL 1999,R breast biopsy 2013, HYSTERECTOMY 2016 - Family History Known Family History: Positive: Cardiac Disease - "My Grandmother when she was in her late 60's", Other - MOTHER WITH MIGRAINES - Social History Occupation: Employed Full-time Lives: With Family Alcohol Use: Occasionally Alcohol Amount: PT drinks wine a few times a week. Substance Use Type: None Smoking Status (MU): Never Smoked Tobacco Household Exposure Type: Cigarettes Review of Systems Constitutional: Negative Skin: Negative Eyes: Negative ENT: Negative Respiratory: Negative Cardiovascular: Chest Pain Gastrointestinal: Negative Neurovascular: Negative Musculoskeletal: Negative Neurological: Other - Dizziness Psychological: Negative All Other Systems Reviewed And Are Negative: Yes Physical Exam - Summary Physical Exam Summary: GENERAL: NAD. WDWN. SKIN: No rashes, sores, or open wounds. HEENT: Head: AT/NC Eyes: PERRLA. EOM intact. Conjunctiva clear without inflammation or discharge. Ears: Hearing grossly normal. TMs intact, no bulging, erythema, or edema. Nose: Nasal mucosa pink and moist. NTTP maxillary and frontal sinus. Throat: Posterior oropharynx without exudates, erythema, or tonsillar enlargement. Uvula midline. NECK: Supple. Nontender. No lymphadenopathy. CHEST: CTAB. No r/r/w. No accessory muscle use. Breathing comfortably and in no distress. CV: RRR. Without m/r/g. Pulses intact. Brisk cap refill. ABDOMEN: Soft. NTTP. No distention or guarding. No organomegaly. No CVA tenderness. Bowel sounds present NEURO: A&Ox3. 3 word recall, remote, recent memory, ability to follow 2-step directions, and attention intact. CN II-XII grossly intact. Fkgtcg-ci-ashp are intact. Gait with normal base. Romberg: maintains balance, no pronator drift. Normal speech. No facial drooping. PSYCH: Age appropriate behavior. Triage Information Reviewed: Yes Vital Signs: Initial Vital Signs Temp 98 F 12/08/17 18:29 Pulse 94 12/08/17 18:29 Resp 18 12/08/17 18:29 BP 144/79 12/08/17 18:29 Pulse Ox 98 12/08/17 18:29 Dizzy Course/Dx - Course Course Of Treatment: EKG NSr at 95bpm as read by Dr. Moran. Currently pt is asymptomatic and her blood pressure is down to 144/79. I advised her that for a more appropriate work up - she should be evaluated in the ER. She did not want to do this and would like to f/u with her PCP, but agreed to go to the ED if her symptoms returned. - Differential Dx/Diagnosis Provider Diagnoses: Dizziness. Elevated BP Discharge - Sign-Out/Discharge Documenting (check all that apply): Discharge/Admit/Transfer - Discharge Plan Condition: Stable Disposition: HOME Referrals: Lesvia Sun MD [Primary Care Provider] - Additional Instructions: If you develop a fever, shortness of breath, chest pain, new or worsening symptoms - please call your PCP or go to the ED. Your blood pressure was high at todays visit. Please see your primary provider within 4 weeks for recheck and re-evaluation. 1) Please call your PCP as soon as possible to schedule a follow up appointment 2) If your symptoms return - please go to the ER or call 911 - Billing Disposition and Condition Condition: STABLE Disposition: Home
== END 2017-12-08 19:00 | disposition home or self-care (01) ==
LOC: UCEAST 18:00
DX: R42 Dizziness and giddiness (principal); R03.0 Elevated blood-pressure reading, without diagnosis of hypertension; Z82.49 Family history of ischemic heart disease and other diseases of the circulatory system
CPT/HCPCS: 93005; 99211; G0463

== ENCOUNTER 2017-12-08 23:19 | Emergency (ER) | payer OTHER ==
[2017-12-09] MEDS ORDERED: Cephalexin CAP* 500 MG PO ONE (01:05)
--- NOTE | 2017-12-09 01:07 | ED ---
Skin Complaint - HPI Summary HPI Summary: Complains of abscess with purulent drainage, redness, pain at posterior right axilla 2 days. Patient states she was able to push out a lot of purulence to fluid today. Denies fever, N/V, abdominal pain. History of prior abscess. - History of Current Complaint Chief Complaint: EDRashSkinAbscess Time Seen by Provider: 12/08/17 23:45 Stated Complaint: RT ARM PAIN Hx Obtained From: Patient Hx Last Menstrual Period: tubal, HYSTERECTOMY Onset/Duration: Started Days Ago Timing: Constant Onset Severity: Mild Current Severity: Severe Pain Intensity: 9 Pain Scale Used: 0-10 Numeric Skin Location: Discrete Aggravating Symptom(s): Touch Alleviating Symptom(s): Nothing Associated Signs & Symptoms: Tenderness - Allergy/Home Medications Allergies/Adverse Reactions: Allergies Allergy/AdvReac Type Severity Reaction Status Date / Time No Known Allergies Allergy Verified 12/08/17 23:24 Home Medications: Home Medications predniSONE TAB* [Deltasone 20 MG TAB*] 20 mg PO DAILY 12/08/17 [History Confirmed 12/08/17] PMH/Surg Hx/FS Hx/Imm Hx Endocrine/Hematology History: Reports: Other Endocrine/Hematological Disorders - was taking metformin for fibroids in uterus Denies: Hx Anticoagulant Therapy, Hx Blood Disorders, Hx Bone Marrow Disease , Hx Thyroid Disease, Hx Anemia Cardiovascular History: Denies: Hx Congestive Heart Failure, Hx Deep Vein Thrombosis, Hx Hypertension , Hx Myocardial Infarction, Hx Pacemaker/ICD, Other Cardiovascular Problems/ Disorders Respiratory History: Reports: Other Respiratory Problems/Disorders - allergies Denies: Hx Asthma, Hx Chronic Obstructive Pulmonary Disease (COPD), Hx Lung Cancer, Hx Pneumonia, Hx Pulmonary Embolism GI History: Denies: Hx Cirrhosis, Hx Crohn's Disease, Hx Diverticulosis, Hx Gall Bladder Disease, Hx Gastroesophageal Reflux Disease, Hx Gastrointestinal Bleed, Hx Hiatal Hernia, Hx Irritable Bowel, Hx Obstructive Bowel, Hx Ulcer, Hx Urosepsis History: Denies: Hx Kidney Stones, Hx Renal Disease Sensory History: Denies: Hx Contacts or Glasses, Hx Hearing Aid Opthamlomology History: Denies: Hx Contacts or Glasses EENT History: Denies: Hx Deafness Neurological History: Denies: Hx Dementia, Hx Migraine, Hx Seizures, Hx Transient Ischemic Attacks (TIA) Psychiatric History: Denies: Hx Anxiety, Hx Depression, Hx Schizophrenia, Hx Bipolar Disorder - Cancer History Cancer Type, Location and Year: right breast biopsy (neg for CA) - Surgical History Surgery Procedure, Year, and Place: TUBAL 1999,R breast biopsy 2013, HYSTERECTOMY 2016 Hx Anesthesia Reactions: No Infectious Disease History: No Infectious Disease History: Denies: Hx Clostridium Difficile, Hx Hepatitis, Hx Human Immunodeficiency Virus (HIV), Hx of Known/Suspected MRSA, Hx Shingles, Hx Tuberculosis, Hx Known/ Suspected VRE, Hx Known/Suspected VRSA, History Other Infectious Disease, Traveled Outside the [place] in Last 30 Days - Family History Known Family History: Positive: Cardiac Disease - "My Grandmother when she was in her late 60's", Other - MOTHER WITH MIGRAINES - Social History Alcohol Use: Occasionally Alcohol Amount: PT drinks wine a few times a week. Hx Substance Use: No Substance Use Type: Reports: None Hx Tobacco Use: No Smoking Status (MU): Never Smoked Tobacco Review of Systems Constitutional: Negative Eyes: Negative ENT: Negative Cardiovascular: Negative Respiratory: Negative Genitourinary: Negative Musculoskeletal: Negative Positive: Other Neurological: Negative Psychological: Normal All Other Systems Reviewed And Are Negative: Yes Physical Exam - Summary Physical Exam Summary: Redness, induration at posterior right axilla. Tender to palpation. Nonfluctuant. Abscess appears to be completely drained. No indication for I& D. Opening already exists from patient draining abscess. Triage Information Reviewed: Yes Vital Signs On Initial Exam: Initial Vitals Temp Pulse Resp BP Pulse Ox 98.0 F 93 16 117/78 99 12/08/17 23:22 12/08/17 23:22 12/08/17 23:22 12/08/17 23:22 12/08/17 23:22 Vital Signs Reviewed: Yes Appearance: Positive: Well-Appearing Skin: Positive: Warm Head/Face: Positive: Normal Head/Face Inspection Eyes: Positive: Normal Neck: Positive: Supple Respiratory/Lung Sounds: Positive: Clear to Auscultation Cardiovascular: Positive: Normal Abdomen Description: Positive: Nontender Musculoskeletal: Positive: Normal Neurological: Positive: Normal Psychiatric: Positive: Normal AVPU Assessment: Alert - [place] Coma Scale Best Eye Response: 4 - Spontaneous Best Motor Response: 6 - Obeys Commands Best Verbal Response: 5 - Oriented Coma Scale Total: 15 Diagnostics - Vital Signs Vital Signs Temp Pulse Resp BP Pulse Ox 12/08/17 23:22 98.0 F 93 16 117/78 99 - Laboratory Lab Statement: Any lab studies that have been ordered have been reviewed, and results considered in the medical decision making process. Course/Dx - Course Course Of Treatment: Complains of abscess with purulent drainage, redness, pain at posterior right axilla 2 days. Patient states she was able to push out a lot of purulence to fluid today. Denies fever, N/V, abdominal pain. History of prior abscess. Redness, induration at posterior right axilla. Tender to palpation. Nonfluctuant. Abscess appears to be completely drained. No indication for I&D. Opening already exists from patient draining abscess. Started on Keflex 500 mg by mouth here in the ED. Rx for same. Has follow-up appointment with dermatology on Sunday. Advised warm compresses to help continue to drain abscess if possible. - Diagnoses Provider Diagnoses: Abscess, Cellulitis Discharge - Sign-Out/Discharge Documenting (check all that apply): Discharge/Admit/Transfer - Discharge Plan Condition: Stable Disposition: HOME Prescriptions: Cephalexin CAP* [Keflex CAP*] 500 mg PO TID 10 Days #30 cap Patient Education Materials: Cellulitis (ED), Abscess (ED) Referrals: Lesvia Sun MD [Primary Care Provider] - Additional Instructions: Follow-up with your certified master locksmith at your appointment on Sunday for wound check. Take antibiotics as directed. Use warm water and warm compresses to help abscess continue to drain. Return to the ED for any new or worsening symptoms - Billing Disposition and Condition Condition: STABLE Disposition: Home
[2017-12-09 01:42] VITALS: BP 128/75
== END 2017-12-09 01:42 | disposition home or self-care (01) ==
LOC: ED 23:19
DX: L02.411 Cutaneous abscess of right axilla (principal); L03.90 Cellulitis, unspecified
CPT/HCPCS: 99282; A9270-GY

== ENCOUNTER 2018-07-17 10:39 | Emergency (ER) | payer OTHER ==
--- OUTSIDE RECORDS SUMMARY | 2018-07-17 10:44 | XMS REPORT | Continuity of Care Document ---
:1980 External Reference #:[id number] Author Name Terrell Miranda MD Address [address] [place] [address] Care Team Providers Name Role Phone Ariana Vaughan NP Care Team Information Band Attacher Unavailable Lesvia Sun M.D. 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 Tobacco Use Start: Unknown Never Smoked Cigarettes Tobacco Use Start: Unknown Never Smoked Cigars Tobacco Use Start: Unknown Never Smoked A Pipe Smokeless Tobacco Never Used Smokeless Tobacco ETOH Use Currently occasionally consumes alcohol Tobacco Use Start: Unknown Patient has never smoked Smoking Status Reviewed: 07/11/18 Patient has never smoked Allergies, Adverse Reactions, Alerts Description No Known Drug Allergies Medications Medication Date Status Form Strength Qnty SIG Indications Ordering Provider Amoxicillin/Cla 07/11 Active Tablets 875-125mg 14tab 1 by mouth Terrell pereira /Bro s twice a day E. Ruth, Potassium for 7 days Prednisone 07/11 Active Tablets 20mg 10tab take 2 tabs Terrell s daily for 5 betzaida Soto - start MD after surgery Hydrocodone 07/11 Active Solution 7.5-325mg 473ml 15 Terrell Bitartrate/Acet /2019 /15ML milliliters Carol Miranda aminophen by mouth every 6 hours as needed pain Fluticasone 12/22 Active Suspension 50mcg/Act 16gm 2 sprays Terrell Propionate each nostril Carol Miranda daily Azelastine HCL 12/22 Active Solution 0.1% 30ml 2 sprays Terrell (Nasal) each nostril Carol Miranda twice a day as needed for congestion Loratadine Active Tablets 10mg Goran /0000 N.P., Onesimo Metronidazole Active Tablets 500mg Unknown / Triamcinolone Active Cream 0.5% Apply To Unknown Acetonide / Affected Area Twice A Day For 7 Days Amoxicillin/Cla 05/30 Hx Tablets 875-125mg 20tab 1 by mouth Terrell pereira s twice a day Carol Miranda Potassium - for 10 days 07/10 Amoxicillin/Cla 03/08 Hx Tablets 875-125mg 20tab 1 by mouth Terrell foxanatjn s twice a day Chris Soto - for 10 days 05/29 Iron Hx Vaughan, /0000 Ariana - OIL SPECULATOR 07/10 Vitamin D Hx Vaughan, /0000 Ariana - OIL SPECULATOR 07/10 Lupron Depot Hx Vaughan, /0000 Ariana - OIL SPECULATOR 07/10 Metformin HCL Hx Tablets 500mg 1 by mouth Vaughan, /0000 twice a day Ariana - LUCIANA 12/22 Gabapentin Hx Capsules 100mg 1 tab po qhs Vaughan, /0000 x3days, then Ariana - 1 tab po bid OIL SPECULATOR 12/22 x3days, 1 tab po tid x7days, then 2 tabs po tid x7days, then 3 tabs po tid Immunizations CPT Code Status Date Vaccine Lot # [id number] Given Unknown Influenza Virus Vaccine, 3 Years Of Age And Above, Intramuscular Vital Signs Date Vital Result Comment 05/30/2018 1:37pm Weight 170.00 lb Weight 77.112 kg Height 61 inches 5'1" Height in cm's 154.9 cm BMI (Body Mass Index) 32.1 kg/m2 2017 2:41pm BP Systolic 138 mmHg BP Diastolic 89 mmHg Heart Rate 80 /min Respiratory Rate 17 /min Weight 170.00 lb Weight 77.112 kg Height 61 inches 5'1" Height in cm's 154.9 cm BMI (Body Mass Index) 32.1 kg/m2 10/07/2015 3:38pm BP Systolic 108 mmHg BP Diastolic 83 mmHg Heart Rate 86 /min Respiratory Rate 17 /min Weight 170.00 lb Weight 77.112 kg Height 61 inches 5'1" Height in cm's 154.9 cm BMI (Body Mass Index) 32.1 kg/m2 09/17/2015 10:42am BP Systolic 114 mmHg BP Diastolic 84 mmHg Heart Rate 79 /min Respiratory Rate 16 /min Weight 170.00 lb Weight 77.112 kg Height 61 inches 5'1" Height in cm's 154.9 cm BMI (Body Mass Index) 32.1 kg/m2 Results Description No Information Available Procedures Date Code Description Status 05/30/2018 46506 Fiberoptic Laryngoscopy Completed 09/17/2015 90548 Nasal Endoscopy, Diagnostic Completed Encounters Type Date Location Provider Dx Diagnosis Office Visit 05/30/2018 [place],After Terrell Barclay34.3 Hypertrophy of 1:30p 06/25/07 MD Ruth nasal turbinates J35.01 Chronic tonsillitis J30.9 Allergic rhinitis, unspecified R07.0 Pain in throat Office Visit 2017 2:45p [place],After Terrell Hernández.[place] Allergic 06/25/07 MD Ruth rhinitis, unspecified J34.3 Hypertrophy of nasal turbinates J35.01 Chronic tonsillitis Office Visit 06/15/2016 4:00p [facility],After Terrell Hernández.9 Allergic 06/25/07 MD Ruth rhinitis, unspecified J34.3 Hypertrophy of nasal turbinates Office Visit 12/23/2015 11:15a [place],After Terrell Mata9 Allergic 06/25/07 MD Ruth rhinitis, unspecified J34.3 Hypertrophy of nasal turbinates Office Visit 10/07/2015 3:30p [place] Terrell Barclay30.9 Allergic 06/25/07 MD Ruth rhinitis, unspecified J34.3 Hypertrophy of nasal turbinates Office Visit 09/17/2015 10:30a [place],[facility] Terrell Barclay30.9 Allergic 06/25/07 MD Ruth rhinitis, unspecified J34.3 Hypertrophy of nasal turbinates G50.1 Atypical facial pain Plan of Treatment Future Appointment(s):07/24/2018 11:00 am - Terrell Miranda MD at [facility], After 06/25/800 10:15 am - Terrell Miranda MD at [facility] [place] [facility] 07/11/2018 - Terrell Miranda MDJ35.01 Chronic rtajhsfhoznZ28.3 Hypertrophy of nasal turbinates
--- OUTSIDE RECORDS SUMMARY | 2018-07-17 10:44 | XMS REPORT ---
:1980 Author Organization [facility] Address [address] [place] [address] Care Team Providers Name Role Phone Graciela Davison Unavailable Unavailable PROBLEMS Type Condition ICD9-CM Code WHA25-SI Code Onset Condition SNOMED Code Dates Status Problem Polycystic E28.2 Active 19606081 ovarian syndrome Problem Low back pain M54.5 Active 816040337 Problem Anal spasm K59.4 Active 30685985 Problem Dyspareunia N94.1 Active 34092844 Problem Pelvic and R10.2 Active 967243998 perineal pain Problem Subacute and N76.3 Active 600021833 chronic vulvitis Problem Other abnormal R92.8 Active 825569519 and inconclusive findings on diagnostic imaging of breast Problem Family history of Z80.41 Active 570525579 malignant neoplasm of ovary Problem Constipation, K59.00 Active 90579479 unspecified Problem Other specified N94.19 Active 53448779 dyspareunia ALLERGIES No Information ENCOUNTERS Encounter Location Date Diagnosis [address] Jun, [address] [place] [address] [id number] Jun, Subacute and chronic [address] [place], vulvitis N76.[address] [place] [id number] [facility] Jun, [place] [id number] [facility] Jun, [place] [id number] [facility] May, OBG[place] [id number] [place] [facility] May, Pelvic and perineal pain OBGYN [facility], R10.2 and Subacute and [place] [id number] chronic vulvitis N76.3 [place] [facility] Mar, OBGYN [facility], [place] [id number] [place] [facility] Mar, Pelvic and perineal pain OBGYN [facility], R10.2 and Dysuria R30.0 [place] [id number] [place] [facility] Mar, Family history of OBGYN [facility], malignant neoplasm of [place] [id number] ovary Z80.41 [place] [facility] Feb, OBGYN [facility], [place] [id number] [place] [facility] Feb, [place] [id number] [place] [facility] Feb, [place] [id number] [facility] Aug, Family history of OBGYN [facility], malignant neoplasm [place] [id number] ovary Z80.41 ; Encounter for screening for infections with a predominantly sexual mode of transmission Z11.3 ; Pelvic and perineal pain R10.2 ; Acute vaginitis N76.0 ; Constipation, unspecified K59.00 and Other specified dyspareunia N94.19 [facility] Aug, Family history of OBGYN [facility], malignant neoplasm of [place] [id number] ovary Z80.41 [place] [facility] Jul, OBG[place] [id number] [place] [facility] Jul, [place] [id number] [facility] 14 Jul, 2017 [place] [id number] [facility] Jun, [place] [id number] [place] [facility] Jun, [place] [id number] [address] Jun, Encounter for OBGYN Road [address] [place] [address], gynecological examination [place] [id number] (general) (routine) without abnormal findings Z01.419 ; Family history of malignant neoplasm of ovary Z80.41 ; Anal spasm K59.4 and Encounter for screening for infections with a predominantly sexual mode of transmission Z11.[address] Jun, OBGY [address] [id number] [facility] Apr, OBG[place] [id number] [facility] Feb, Other abnormal and OBGYN [facility], inconclusive findings on [place] [id number] diagnostic imaging of breast R92.8 [facility] Dec, OBG[place] [id number] [place] [facility] Dec, Family history of OBGYN [facility], malignant neoplasm of [place] [id number] ovary Z80.41 and Anal spasm K59.4 [facility] Dec, Family history of OBGYN [facility], malignant neoplasm of [place] [id number] ovary Z80.[address] Aug, Other specified OBGY [address], noninflammatory disorders [place] [id number] of vagina N89.8 ; Anal spasm K59.4 ; Dyspareunia N94.1 and Acute vulvitis N76.[address] Aug, Family history of OBGYN Road [address] [place], malignant neoplasm of [place] [id number] ovary Z80.41 [place] [facility] Aug, [place] [id number] [place] [facility] Jul, [place], [place] [id number] [place] [facility] Jul, OBGYN [place], [place] [id number] [place] [facility] Jun, O[place] [id number] [place] [facility] Jun, [facility] inconclusive findings on [place] [id number] diagnostic imaging of breast R92.[address] May, Encounter for OBGYN Road [address] [place] [address], gynecological examination [place] [id number] (general) (routine) without abnormal findings Z01.419 ; Family history of malignant neoplasm of ovary Z80.41 ; Anal spasm K59.4 ; Polycystic ovarian syndrome E28.2 and Mastodynia N64.4 [place] [facility] May, O[place] [id number] [place] [facility] 08 May, 2016 Dysuria R30.0 ; Anal spasm OBGYN [facility], K59.4 and Low back pain [place] [id number] M54.5 [place] [facility] May, O[place] [id number] [place] [facility] May, Dysuria R30.0 ; Anal spasm OBGYN [address] [place], K59.4 and Low back pain [place] [id number] M54.5 [place] [facility] Mar, Anal spasm K59.[address] [place], back pain M54.5 [place] [id number] [place] [facility] [address], 2016 OBG[place] [id number] [place] [facility] Nov, Low back pain M54.5 [place] [id number] [place] [facility] [address] [facility] Nov, Anal spasm K59.4 ; OBGYN [address] [place], Abnormal uterine and [place] [id number] vaginal bleeding, unspecified N93.9 ; Low back pain M54.5 and Polycystic ovarian syndrome E28.2 [place] [facility] [address] [facility] October, Cellulitis of abdominal OBGYN Road [address] [place], wall L03.311 and Abnormal [place] [id number] uterine and vaginal bleeding, unspecified N93.9 [place] [facility] October, OBG[place] [id number] [place] [facility] October, Hematuria, unspecified OBGYN [facility], R31.9 [place] [id number] [place] [facility] [address] [facility] October, Dysuria R30.[address] [place], spasm K59.4 [place] [id number] [facility] [address] [place], Sep, [facility] [place] [id number] [facility] [address] [place], Sep, [place] [id number] [facility] Sep, O[place] [id number] [place] [facility] Sep, O[place], [place] [id number] [place] [facility] 18 Sep, 2015 Candidiasis of vulva and OBGYN [facility], vagina B37.3 [place] [id number] [place] [facility] 14 Sep, 2015 OBG[place], [place] [id number] [facility] 13 Sep, 2015 Other specified abnormal OBGYN [facility], uterine and vaginal [place] [id number] bleeding N93.8 ; Leiomyoma of uterus, unspecified D25.9 ; Other specified noninflammatory disorders of vagina N89.8 and Pain, unspecified R52 [place] [facility] 13 Sep, 2015 Leiomyoma of uterus, OBGYN [facility], unspecified D25.9 [place] [id number] [place] [facility] [address] [facility] Aug, Polycystic ovarian OBGYN [address] [place], syndrome E28.2 [place] [id number] [facility] Jul, Polycystic ovarian OBGYN [facility], syndrome E28.2 [place] [id number] [place] [facility] Jun, [place] [id number] [facility] Jun, Polycystic ovarian OBGYN [facility], syndrome E28.2 [place] [id number] [facility] Jun, O[place] [id number] [place] [facility] [address] [facility] Jun, Other specified abnormal OBGYN [address] [place], uterine and vaginal [place] [id number] bleeding N93.8 ; Leiomyoma of uterus, unspecified D25.9 ; Acute vulvitis N76.2 and Polycystic ovarian syndrome E28.2 [place] [facility] [address] [facility] Jun, Acute vulvitis N76.[address] [place], [place] [id number] [facility] [address] [place], Jun, [facility] [place] [id number] [place] [facility] [address] [facility] May, Other specified abnormal OBGYN [address] [place], uterine and vaginal [place] [id number] bleeding N93.8 ; Leiomyoma of uterus, unspecified D25.9 ; Acute vulvitis N76.2 and Polycystic ovarian syndrome E28.2 [place] [facility] May, [place], [place] [id number] [facility] May, OBGYN [facility], [place] [id number] [facility] [address] [place] [address] May, Other specified abnormal OBGYN [address] [place], uterine and vaginal [place] [id number] bleeding N93.8 ; Leiomyoma of uterus, unspecified D25.9 ; Acute vulvitis N76.2 and Polycystic ovarian syndrome E28.2 [facility] Apr, Other specified abnormal OBGYN [facility], uterine and vaginal [place] [id number] bleeding N93.8 ; Leiomyoma of uterus, unspecified D25.9 and Acute vulvitis N76.2 [facility] Apr, Leiomyoma of uterus, OBGYN [facility], unspecified D25.9 and [place] [id number] Other specified abnormal uterine and vaginal bleeding N93.8 [facility] Apr, Other specified abnormal OBGYN [facility], uterine and vaginal [place] [id number] bleeding N93.8 and Leiomyoma of uterus, unspecified D25.9 [facility] Apr, OBGYN [facility], [place] [id number] [facility] Apr, Leiomyoma of uterus, OBGYN [facility], unspecified D25.9 ; [place] [id number] Dyspareunia N94.1 ; Other specified abnormal uterine and vaginal bleeding N93.8 and Polycystic ovarian syndrome E28.2 [facility] Apr, Leiomyoma of uterus, OBGYN [facility], unspecified D25.9 ; Other [place] [id number] specified abnormal uterine and vaginal bleeding N93.8 and Dyspareunia N94.1 [facility] Mar, Leiomyoma of uterus, OBGYN [facility], unspecified D25.9 ; [place] [id number] Dyspareunia N94.1 and Other specified abnormal uterine and vaginal bleeding N93.8 [facility] 103 18 Mar, 2015 OBGYN [place], [place] [id number] IMMUNIZATIONS No Known Immunizations SOCIAL HISTORY Never Assessed REASON FOR REFERRAL FUNCTIONAL STATUS PLAN OF CARE VITAL SIGNS MEDICATIONS Unknown Medications PROCEDURES No Known procedures RESULTS No Results REASON FOR VISIT Patient needs to make payment Insurance Providers [facility] Health Member Patient Patient Patient Patient Patient Subscriber Subscriber Subscriber Group Insurance Plan Plan Plan Plan ID Relationship Address Phone Name Date of ID Name Date of No Type Insurance Insurance Insurance Coverage to Subscriber Address Phone Name Dates [place] [phone] [place] self [place] [id number] [address] [address] MEDICAL (GENERAL) HISTORY Type Description Date Medical History diabetes Surgical History lumpectomy - benign 2013 Surgical History Hysteroscopy/D&C 07-01-15 Surgical History [facility] with cold knife extraction of fibroid uterus, , 09/2015 cystoscopy Hospitalization History childbirth 1995 Hospitalization History childbirth 1996 Hospitalization History childbirth 1998 Hospitalization History childbirth 1999
--- OUTSIDE RECORDS SUMMARY | 2018-07-17 10:45 | XMS REPORT ---
:1980 Author Organization [facility] Address [address] [place] [address] Care Team Providers Name Role Phone Graciela Davison Unavailable Unavailable PROBLEMS Type Condition ICD9-CM Code OPA00-GR Code Onset Condition SNOMED Code Dates Status Problem Polycystic E28.2 Active 86794771 ovarian syndrome Problem Low back pain M54.5 Active 568485391 Problem Anal spasm K59.4 Active 63442357 Problem Dyspareunia N94.1 Active 64909542 Problem Pelvic and R10.2 Active 615733158 perineal pain Problem Subacute and N76.3 Active 959851209 chronic vulvitis Problem Other abnormal R92.8 Active 115328649 and inconclusive findings on diagnostic imaging of breast Problem Family history of Z80.41 Active 510427354 malignant neoplasm of ovary Problem Constipation, K59.00 Active 52236225 unspecified Problem Other specified N94.19 Active 66970527 dyspareunia ALLERGIES No Information ENCOUNTERS Encounter Location Date Diagnosis [address] Jun, [facility] [address] [place] [id number] Jun, [facility] [address] [place] [address] [id number] [facility] Jun, [place] [id number] [facility] May, [place], [place] [id number] [facility] May, Pelvic and perineal pain OBGYN [facility], R10.2 and Subacute and [place] [id number] chronic vulvitis N76.3 [facility] Mar, [place], [place] [id number] [facility] 103 Mar, Pelvic and perineal pain OBGYN [facility], R10.2 and Dysuria R30.0 [place] [id number] [facility] 103 Mar, Family history of OBGYN [facility], malignant neoplasm [place] [id number] ovary Z80.41 [facility] 103 Feb, [place] [id number] [facility] 103 Feb, [place] [id number] [facility] 103 Feb, [place] [id number] [facility] 103 Aug, Family history of OBGYN [facility], malignant neoplasm of [place] [id number] ovary Z80.41 ; Encounter for screening for infections with a predominantly sexual mode of transmission Z11.3 ; Pelvic and perineal pain R10.2 ; Acute vaginitis N76.0 ; Constipation, unspecified K59.00 and Other specified dyspareunia N94.19 [facility] 103 Aug, Family history of OBGYN [facility], malignant neoplasm [place] [id number] ovary Z80.41 [facility] 103 Jul, [place] [id number] [facility] 103 Jul, [place] [id number] [facility] 103 Jul, [place] [id number] [facility] 103 Jun, [place] [id number] [facility] 103 Jun, [place] [id number] [facility] [address] [place] [address] Jun, Encounter for OBGYN [address] [place] [address], gynecological examination [place] [id number] (general) (routine) without abnormal findings Z01.419 ; Family history of malignant neoplasm of ovary Z80.41 ; Anal spasm K59.4 and Encounter for screening for infections with a predominantly sexual mode of transmission Z11.[address] Jun, [address] [place] [id number] [facility] Apr, [place] [id number] [facility] Feb, Other [facility] inconclusive findings on [place] [id number] diagnostic imaging of breast R92.8 [facility] 103 Dec, [place], [place] [id number] [facility] 103 Dec, [facility], malignant [place]oplasm [place] [id number] ovary Z80.41 and Anal spasm K59.4 [facility] Dec, Family history of OBGYN [facility], malignant neoplasm [place] [id number] ovary Z80.41 [place] [facility] [address] [place] [address] Aug, Other specified OBGY [address] [place] [address], noninflammatory disorders [place] [id number] of vagina N89.8 ; Anal spasm K59.4 ; Dyspareunia N94.1 and Acute vulvitis N76.[address] Aug, Family history of OBGY Road [address] [place] [address], malignant neoplasm of [place] [id number] ovary Z80.41 [facility] 103 Aug, [place], [place] [id number] [facility] 103 Jul, [place] [id number] [facility] 103 Jul, [place], [place] [id number] [facility] 103 Jun, [place] [id number] [facility] 103 Jun, Other abnormal and OBGYN [facility], inconclusive findings [place] [id number] diagnostic imaging of breast R92.[address] May, Encounter for OBGY [address] [place], gynecological examination [place] [id number] (general) (routine) without abnormal findings Z01.419 ; Family history of malignant neoplasm of ovary Z80.41 ; Anal spasm K59.4 ; Polycystic ovarian syndrome E28.2 and Mastodynia N64.4 [facility] May, [place], [place] [id number] [facility] 103 May, Dysuria R30.0 ; [facility], K59.4 and Low back pain [place] [id number] M54.5 [facility] 103 May, [place] [id number] [facility] [address] [place] [address] May, Dysuria R30.0 ; Anal spasm OBGYN [address] [place], K59.4 and Low back pain [place] [id number] M54.5 [facility] [address] [place] [address] Mar, Anal spasm K59.[address] [place], back pain M54.5 [place] [id number] [facility] 103 Nov, [place], [place] [id number] [facility] 103 Nov, Low back pain M54.5 [facility]YN [facility], [place] [id number] [place] [facility] [address] Nov, Anal spasm K59.4 ; OBGYN [address] [place], Abnormal uterine [place] [id number] vaginal bleeding, unspecified N93.9 ; Low back pain M54.5 and Polycystic ovarian syndrome E28.2 [facility] [address] October, Cellulitis of abdominal OBGYN [address] [place], wall L03.311 and Abnormal [place] [id number] uterine and vaginal bleeding, unspecified N93.9 [facility] October, [place] [id number] [place] [facility] October, Hematuria, unspecified OBGYN [facility], R31.9 [place] [id number] [place] [facility] [address] October, Dysuria R30.[address] [place], spasm K59.4 [place] [id number] [facility] [address] [place], Sep, [place] [id number] [facility] [address] [place], Sep, [place] [id number] [facility] 103 Sep, [place] [id number] [facility] 103 Sep, [place] [id number] [place] [facility] 103 Sep, Candidiasis of vulva and OBGYN [facility], vagina B37.3 [place] [id number] [facility] 103 14 Sep, 2015 [place] [id number] [facility] 103 13 Sep, 2015 Other specified abnormal [facility], uterine and vaginal [place] [id number] bleeding N93.8 ; Leiomyoma of uterus, unspecified D25.9 ; Other specified noninflammatory disorders of vagina N89.8 and Pain, unspecified R52 [facility] 103 13 Sep, 2015 Leiomyoma of uterus, OBGYN [facility], unspecified D25.9 [place] [id number] [facility] [address] [place], [place] [address] Aug, Polycystic ovarian OBGYN [address] [place], syndrome E28.2 [place] [id number] [facility] 103 Jul, Polycystic ovarian [facility]BGYN [facility], syndrome E28.2 [place] [id number] [facility] Jun, [place], [place] [id number] [facility] Jun, Polycystic ovarian OBGYN [facility], syndrome E28.2 [place] [id number] [facility] Jun, [place] [id number] [facility] [address] [place] [address] Jun, Other specified abnormal OBGYN [address] [place], uterine and vaginal [place] [id number] bleeding N93.8 ; Leiomyoma of uterus, unspecified D25.9 ; Acute vulvitis N76.2 and Polycystic ovarian syndrome E28.2 [facility] [address] [place] [address] Jun, Acute vulvitis N76.[address] [place], [place] [id number] [facility] [address] [place], Jun, [place] [id number] [facility] [address] [place] [address] May, Other specified abnormal OBGYN [address] [place], uterine and vaginal [place] [id number] bleeding N93.8 ; Leiomyoma of uterus, unspecified D25.9 ; Acute vulvitis N76.2 and Polycystic ovarian syndrome E28.2 [facility] 103 May, [place], [place] [id number] [facility] 103 May, [place] [id number] [place] [facility] [address] [place] [address] May, Other specified abnormal OBGYN [address] [place], uterine and vaginal [place] [id number] bleeding N93.8 ; Leiomyoma of uterus, unspecified D25.9 ; Acute vulvitis N76.2 and Polycystic ovarian syndrome E28.2 [facility] Apr, Other specified abnormal OBGYN [facility], uterine and vaginal [place] [id number] bleeding N93.8 ; Leiomyoma of uterus, unspecified D25.9 and Acute vulvitis N76.2 [facility] 103 Apr, Leiomyoma of uterus, OBGYN [facility], unspecified D25.9 and [place] [id number] Other specified abnormal uterine and vaginal bleeding N93.8 [facility] 103 Apr, Other specified abnormal OBGYN [facility], uterine and vaginal [place] [id number] bleeding N93.8 and Leiomyoma of uterus, unspecified D25.9 [facility] Apr, OBGYN [facility], [place] [id number] [facility] 103 Apr, Leiomyoma of uterus, OBGYN [facility], unspecified D25.9 ; [place] [id number] Dyspareunia N94.1 ; Other specified abnormal uterine and vaginal bleeding N93.8 and Polycystic ovarian syndrome E28.2 [facility] 103 Apr, Leiomyoma of uterus, OBGYN [facility], unspecified D25.9 ; Other [place] [id number] specified abnormal uterine and vaginal bleeding N93.8 and Dyspareunia N94.1 [facility] 103 Mar, Leiomyoma of uterus, OBGYN [facility], unspecified D25.9 ; [place] [id number] Dyspareunia N94.1 and Other specified abnormal uterine and vaginal bleeding N93.8 [facility] 103 Mar, OBGYN [facility], [place] [id number] IMMUNIZATIONS No Known Immunizations SOCIAL HISTORY Never Assessed REASON FOR REFERRAL FUNCTIONAL STATUS PLAN OF CARE VITAL SIGNS MEDICATIONS Medication Instructions Dosage Frequency Start Date End Date Duration Status Flagyl 500 mg po bid 1 tab 12h May, 7 days Active PROCEDURES No Known procedures RESULTS No Results REASON FOR VISIT BV- LMTCB 06/21/18 Insurance Providers [facility] Patient Patient Patient Patient Patient Subscriber Subscriber Subscriber Group Insurance Plan Plan Plan Plan ID Relationship Address Phone Name Date of ID Name Date of No Type Insurance Insurance Insurance Coverage to Subscriber Address Phone Name Dates [place] [phone] [place] self [place] [id number] [address] [address] MEDICAL (GENERAL) HISTORY Type Description Date Medical History diabetes Surgical History lumpectomy - benign 2013 Surgical History Hysteroscopy/D&C 07-01-15 Surgical History LT with cold knife extraction of fibroid uterus, , 09/2015 cystoscopy Hospitalization History childbirth 1995 Hospitalization History childbirth 1996 Hospitalization History childbirth 1998 Hospitalization History childbirth 1999
--- OUTSIDE RECORDS SUMMARY | 2018-07-17 10:45 | XMS REPORT ---
:1980 Author Organization [facility] Address [address] [place] [address] Care Team Providers Name Role Phone Federica Power Unavailable Unavailable PROBLEMS Type Condition ICD9-CM Code EYV16-YV Code Onset Condition SNOMED Code Dates Status Problem Polycystic E28.2 Active 21516447 ovarian syndrome Problem Low back pain M54.5 Active 099990431 Problem Anal spasm K59.4 Active 78177416 Problem Dyspareunia N94.1 Active 59053631 Problem Pelvic and R10.2 Active 803223680 perineal pain Problem Subacute and N76.3 Active 856053177 chronic vulvitis Problem Other abnormal R92.8 Active 368719331 and inconclusive findings on diagnostic imaging of breast Problem Family history of Z80.41 Active 511708046 malignant neoplasm of ovary Problem Constipation, K59.00 Active 16842432 unspecified Problem Other specified N94.19 Active 42691398 dyspareunia ALLERGIES No Known Allergies ENCOUNTERS Encounter Location Date Diagnosis [address] Jun, [address] [place], [place] [id number] [address] Jun, Subacute and chronic [facility] [address] [place], vulvitis N76.3 [place] [id number] [facility] Jun, [place] [id number] [facility] Jun, [place] [id number] [facility] May, [place] [id number] [place] [facility] May, Pelvic and perineal pain O[facility], R10.2 and Subacute and [place] [id number] chronic vulvitis N76.3 [place] [facility] Mar, O[place] [id number] [place] [facility] Mar, Pelvic and perineal pain OBG[facility], R10.2 and Dysuria R30.0 [place] [id number] [place] [facility] Mar, Family history of OBGYN [facility], malignant neoplasm of [place] [id number] ovary Z80.41 [place] [facility] Feb, [place] [id number] [place] [facility] Feb, [place] [id number] [place] [facility] Feb, [place] [id number] [place] [facility] Aug, [facility], malignant neoplasm of [place] [id number] ovary Z80.41 ; Encounter for screening for infections with a predominantly sexual mode of transmission Z11.3 ; Pelvic and perineal pain R10.2 ; Acute vaginitis N76.0 ; Constipation, unspecified K59.00 and Other specified dyspareunia N94.19 [place] [facility] Aug, Family history of OBGYN [facility], malignant neoplasm of [place] [id number] ovary Z80.41 [place] [facility] Jul, [place] [id number] [place] [facility] Jul, [place] [id number] [facility] 14 Jul, 2017 [place], [place] [id number] [facility] Jun, [place] [id number] [place] [facility] Jun, [place] [id number] [address] Jun, Encounter for [facility] [address] [place] [address], gynecological examination [place] [id number] (general) (routine) without abnormal findings Z01.419 ; Family history of malignant neoplasm of ovary Z80.41 ; Anal spasm K59.4 and Encounter for screening for infections with a predominantly sexual mode of transmission Z11.[address] Jun, [facility] [address] [id number] [facility] Apr, [place] [id number] [facility] 08 Feb, 2017 Other abnormal and [facility], inconclusive findings on [place] [id number] diagnostic imaging of breast R92.8 [facility] Dec, [place] [id number] [place] [facility] Dec, Family history of OBGYN [facility], malignant neoplasm of [place] [id number] ovary Z80.41 and Anal spasm K59.4 [facility] Dec, Family history of OBGYN [facility], malignant neoplasm of [place] [id number] ovary Z80.[address] Aug, Other specified [facility] [address] [place] [address], noninflammatory disorders [place] [id number] of vagina N89.8 ; Anal spasm K59.4 ; Dyspareunia N94.1 and Acute vulvitis N76.[address] Aug, Family history of OBGYN [address] [place] [address], malignant neoplasm [place] [id number] ovary Z80.41 [place] [facility] Aug, [place] [id number] [place] [facility] 103 Jul, [place] [id number] [place] [facility] Jul, [place] [id number] [place] [facility] Jun, [place] [id number] [place] [facility] Jun, Other abnormal and [facility], inconclusive findings on [place] [id number] diagnostic imaging of breast R92.[address] May, Encounter for OBGYN [address] [place] [address], gynecological examination [place] [id number] (general) (routine) without abnormal findings Z01.419 ; Family history of malignant neoplasm of ovary Z80.41 ; Anal spasm K59.4 ; Polycystic ovarian syndrome E28.2 and Mastodynia N64.4 [place] [facility] May, [place] [id number] [place] [facility] May, Dysuria R30.0 ; Anal spasm [facility], K59.4 and Low back pain [place] [id number] M54.5 [place] [facility] May, [place] [id number] [place] [facility] [address] [place] [address] May, Dysuria R30.0 ; Anal spasm OBGYN [address] [place], K59.4 and Low back pain [place] [id number] M54.5 [place] [facility] [address] [place] [address] Mar, Anal spasm K59.[address] [place] [address], back pain M54.5 [place] [id number] [facility] Nov, [place] [id number] [place] [facility] Nov, Low back pain M54.5 [place] [id number] [place] [facility] [address] Nov, Anal spasm K59.4 ; OBGYN [address] [place], Abnormal uterine and [place] [id number] vaginal bleeding, unspecified N93.9 ; Low back pain M54.5 and Polycystic ovarian syndrome E28.2 [place] [facility] [address] October, Cellulitis of abdominal OBGYN [address] [place], wall L03.311 and Abnormal [place] [id number] uterine and vaginal bleeding, unspecified N93.9 [facility] October, [place] [id number] [facility] October, Hematuria, unspecified O[facility], R31.9 [place] [id number] [place] [facility] [address] [place] [address] [place] October, Dysuria R30.[address] [place], spasm K59.4 [place] [id number] [place] [facility] [address] [place], Sep, [facility] Center [place] [id number] [facility] [address] [place], Sep, [facility] [place] [id number] [facility] Sep, [place] [id number] [facility] Sep, [place] [id number] [place] [facility] 103 Sep, Candidiasis of vulva and OBGYN [facility], vagina B37.3 [place] [id number] [place] [facility] 14 Sep, 2015 [place] [id number] [facility] 13 Sep, 2015 Other specified abnormal OBGYN [facility], uterine and vaginal [place] [id number] bleeding N93.8 ; Leiomyoma of uterus, unspecified D25.9 ; Other specified noninflammatory disorders of vagina N89.8 and Pain, unspecified R52 [place] [facility] 13 Sep, 2015 Leiomyoma of uterus, OBGYN [facility], unspecified D25.9 [place] [id number] [place] [facility] [address] [place], [place] [address] Aug, Polycystic ovarian OBGYN [address] [place], syndrome E28.2 [place] [id number] [place] [facility] Jul, Polycystic ovarian OBG[facility], syndrome E28.2 [place] [id number] [facility] Jun, [place] [id number] [place] [facility] Jun, Polycystic ovarian OBGYN [facility], syndrome E28.2 [place] [id number] [facility] Jun, [place] [id number] [place] [facility] [address] [place] [address] Jun, Other specified abnormal [address] [place], uterine and vaginal [place] [id number] bleeding N93.8 ; Leiomyoma of uterus, unspecified D25.9 ; Acute vulvitis N76.2 and Polycystic ovarian syndrome E28.2 [place] [facility] [address] [place] [address] Jun, Acute vulvitis N76.[address] [place], [place] [id number] [facility] [address] [place], Jun, Medical Center [place] [id number] [place] [facility] [address] [place] [address] May, Other specified abnormal OBGYN [address] [place], uterine and vaginal [place] [id number] bleeding N93.8 ; Leiomyoma of uterus, unspecified D25.9 ; Acute vulvitis N76.2 and Polycystic ovarian syndrome E28.2 [place] [facility] May, [place] [id number] [facility] May, [place] [id number] [place] [facility] [address] [place] [address] May, Other specified abnormal [address]BGYN [address] [place], uterine and vaginal [place] [id number] bleeding N93.8 ; Leiomyoma of uterus, unspecified D25.9 ; Acute vulvitis N76.2 and Polycystic ovarian syndrome E28.2 [facility] Apr, Other specified abnormal OBGYN [facility], uterine and vaginal [place] [id number] bleeding N93.8 ; Leiomyoma of uterus, unspecified D25.9 and Acute vulvitis N76.2 [facility] Apr, Leiomyoma of uterus, OBGYN [facility], unspecified D25.9 and [place] [id number] Other specified abnormal uterine and vaginal bleeding N93.8 [facility] Apr, Other specified abnormal OBGYN [facility], uterine and vaginal [place] [id number] bleeding N93.8 and Leiomyoma of uterus, unspecified D25.9 [facility] Apr, OBGYN [facility], [place] [id number] [facility] Apr, Leiomyoma of uterus, OBGYN [facility], unspecified D25.9 ; [place] [id number] Dyspareunia N94.1 ; Other specified abnormal uterine and vaginal bleeding N93.8 and Polycystic ovarian syndrome E28.2 [place] [facility] Apr, Leiomyoma of uterus, OBGYN [facility], unspecified D25.9 ; Other [place] [id number] specified abnormal uterine and vaginal bleeding N93.8 and Dyspareunia N94.1 [place] [facility] Mar, Leiomyoma of uterus, OBGYN [facility], unspecified D25.9 ; [place] [id number] Dyspareunia N94.1 and Other specified abnormal uterine and vaginal bleeding N93.8 [facility] 103 18 Mar, 2015 [place], [place] [id number] IMMUNIZATIONS No Known Immunizations SOCIAL HISTORY Never Assessed REASON FOR REFERRAL FUNCTIONAL STATUS PLAN OF CARE Activity Details Follow Up As scheduled Reason: Pending Test Skin Biopsy VITAL SIGNS Height 60 in 2018-07-03 Weight 176 lbs 2018-07-03 BMI 34.37 kg/m2 2018-07-03 Blood pressure systolic 126 mm Hg 2018-07-03 Blood pressure diastolic 62 mm Hg 2018-07-03 MEDICATIONS Medication Instructions Dosage Frequency Start Date End Date Duration Status Flagyl 250 mg orally 3 times a 1 tab(s) 8h Active day PROCEDURES Procedure Date Ordered Result Body Site COLPO VULVA W/BX Jul 03, 2018 RESULTS No Results REASON FOR VISIT Vulvar Colpo, Please ask pt to call me today (Jayla)- Pt made aware. Insurance Providers [facility] Health Member Patient Patient Patient Patient Patient Subscriber Subscriber Subscriber Group Insurance Plan Plan Plan Plan ID Relationship Address Phone Name Date of ID Name Date of No Type Insurance Insurance Insurance Coverage to Subscriber Address Phone Name Dates [place] [phone] [place] self [place] [id number] [address] [address] MEDICAL (GENERAL) HISTORY Type Description Date Medical History diabetes Surgical History lumpectomy - benign 2013 Surgical History Hysteroscopy/D&C 07-01-15 Surgical History LT with cold knife extraction of fibroid uterus, , 09/2015 cystoscopy Hospitalization History childbirth 1995 Hospitalization History childbirth 1996 Hospitalization History childbirth 1998 Hospitalization History childbirth 1999
[2018-07-17 10:47] VITALS: BP 140/88
--- NOTE | 2018-07-17 10:53 | UC ---
FLU HPI - HPI Summary HPI Summary: 38 yo female presents with fatigue and body aches since last night and two episodes of loose stool and vomiting this morning. She is currently on amoxicillin for chronic tonsillitis and is scheduled for a tonsillectomy in 2 days. She is concerned she may have the flu and that her surgery will be canceled. She is drinking well, but has a decreased appetite. Denies fever, cough, abdominal pain, dysuria. - History of Current Complaint Chief Complaint: UCGeneralIllness Stated Complaint: FATIGUE,DIARRHEA,SORE THROAT Time Seen by Provider: 07/17/18 10:52 Hx Obtained From: Patient Hx Last Menstrual Period: hyster Onset/Duration: Sudden Onset Severity Currently: Moderate Severity Initially: Moderate Pain Intensity: 7 Pain Scale Used: 0-10 Numeric - Allergy/Home Medications Allergies/Adverse Reactions: Allergies Allergy/AdvReac Type Severity Reaction Status Date / Time No Known Allergies Allergy Verified 07/17/18 10:48 PMH/Surg Hx/FS Hx/Imm Hx - Additional Past Medical History Additional PMH: None Other History Of: Negative For: Anticoagulant Therapy - Surgical History Surgical History: Yes Surgery Procedure, Year, and Place: TUBAL 1999,R breast biopsy 2013, HYSTERECTOMY 2016 - Family History Known Family History: Positive: Cardiac Disease - "My Grandmother when she was in her late 60's", Other - MOTHER WITH MIGRAINES - Social History Occupation: Employed Full-time Lives: With Family Alcohol Use: Occasionally Alcohol Amount: PT drinks wine a few times a week. Substance Use Type: None Smoking Status (MU): Never Smoked Tobacco Have You Smoked in the Last Year: No Household Exposure Type: Cigarettes Review of Systems All Other Systems Reviewed And Are Negative: Yes Constitutional: Positive: Fatigue, Other - Body aches Skin: Positive: Negative Eyes: Positive: Negative ENT: Positive: Sore Throat Respiratory: Positive: Negative Cardiovascular: Positive: Negative Gastrointestinal: Positive: Vomiting, Diarrhea, Nausea Genitourinary: Positive: Negative Neurovascular: Positive: Negative Neurological: Positive: Negative Psychological: Positive: Negative Physical Exam - Summary Physical Exam Summary: GENERAL: NAD. WDWN. No pain distress. SKIN: No rashes, sores, lesions, or open wounds. HEENT: Head: AT/NC Eyes: EOM intact. Conjunctiva clear without inflammation or discharge. Ears: Hearing grossly normal. TMs intact, no bulging, erythema, or edema. Nose: Nasal mucosa pink and moist. NTTP maxillary and frontal sinus. Throat: Posterior oropharynx without exudates or erythema. 2+ tonsillar enlargement. Uvula midline. NECK: Supple. Nontender. No lymphadenopathy. CHEST: CTAB. No r/r/w. No accessory muscle use. Breathing comfortably and in no distress. CV: RRR. Without m/r/g. Pulses intact. Cap refill <2seconds ABDOMEN: Soft. NTTP. No distention or guarding. No CVA tenderness. Bowel sounds present NEURO: Alert. PSYCH: Age appropriate behavior. Triage Information Reviewed: Yes Vital Signs: Initial Vital Signs Temp 98.5 F 07/17/18 10:46 Pulse 88 07/17/18 10:46 Resp 16 07/17/18 10:46 BP 140/88 07/17/18 10:46 Pulse Ox 100 07/17/18 10:46 Laboratory Tests 07/17/18 10:57 Influenza A (Rapid) Negative Influenza B (Rapid) Negative Vital Signs Reviewed: Yes Flu Course/Dx - Course Course Of Treatment: POC flu negative. Suspect viral flu-like illness vs gastroenteritis. Rx for zofran. Advised to rest and drink plenty of clear fluids. If not improved by tomorrow afternoon - advised to call her surgeon and let them know before her surgery in 2 days. - Differential Dx/Diagnosis Provider Diagnosis: Gastroenteritis Discharge - Sign-Out/Discharge Documenting (check all that apply): Patient Departure All imaging exams completed and their final reports reviewed: No Studies - Discharge Plan Condition: Stable Disposition: HOME Prescriptions: Ondansetron ODT TAB* [Zofran 4 MG Odt TAB*] 4 mg PO Q8H PRN #12 tab.odt PRN Reason: Nausea Patient Education Materials: Gastroenteritis (ED) Referrals: Lesvia Sun MD [Primary Care Provider] - Additional Instructions: If you develop a fever, shortness of breath, chest pain, new or worsening symptoms - please call your PCP or go to the ED. Your blood pressure was high at todays visit. Please see your primary provider within 4 weeks for recheck and re-evaluation. - Billing Disposition and Condition Condition: STABLE Disposition: Home
[2018-07-17 11:09] LABS: Influenza A Molecular NEGATIVE (Negative); Influenza B Molecular NEGATIVE (Negative)
== END 2018-07-17 11:21 | disposition home or self-care (01) ==
LOC: UCEAST 10:39
DX: K52.9 Noninfective gastroenteritis and colitis, unspecified (principal)
CPT/HCPCS: 99212; G0463

== ENCOUNTER 2018-07-19 11:17 | Day surgery (SDC) | payer OTHER ==
[~2018-07-19 11:17] MED LIST: Buffered Lidocaine 1% SYRIN* 1 ML/SYRINGE INTRADERM ONE; Dexamethasone TAB* 4 MG PO ONE; DiMENhydriNATE IV* 50 MG/ML VIAL IV PUSH PRN; Famotidine IV* 10 MG/ML 2 ML (20 mg) IV ONE; Lactated Ringers 1000 ML Bag* 1,000 ML IV SCH; Morphine VIAL* 4 MG/ML VIAL (1 ml vial) IV PRN; Naloxone* 0.4 MG/ML 1 ML VIAL IV PRN; Ondansetron TAB* 4 MG PO ONE; PROCHLORPERAZINE INJ 5 MG/ML 2 ML VIAL IV PRN; Scopolamine 1.5 mg* PATCH TRANSDERM PRN; oxyCODONE/Acetamin 5/325 MG* TAB PO PRN
[2018-07-19] MEDS ORDERED: Dexamethasone TAB* 4 MG ONE (12:28)
[2018-07-19] MEDS ORDERED: Ondansetron ODT TAB* 4 MG ONE (12:28)
[2018-07-19] MEDS ORDERED: Famotidine IV* 10 MG/ML 2 ML (20 mg) ONE (12:28)
[2018-07-19] MEDS ORDERED: Buffered Lidocaine 1% SYRIN* 1 ML/SYRINGE INTRADERM ONE (12:29)
[2018-07-19] MEDS ORDERED: Midazolam* 1 MG/ML 2 ML VIAL (2 MG) ONE (12:56)
[2018-07-19] MEDS ORDERED: fentaNYL* 50 MCG/ML 2 ML VIAL (100 MCG VIAL) ONE ×2 (12:56→16:11)
[2018-07-19] MEDS ORDERED: Atracurium* 10 MG/ML 10 ML VIAL ONE (12:56)
[2018-07-19] MEDS ORDERED: Lidocaine 4% TOPICAL* 50 ML TOP.SOLN ONE (14:37)
[2018-07-19] MEDS ORDERED: Oxymetazoline 0.05% NASAL SPR* 15 ML BTL ONE (14:37)
[2018-07-19] MEDS ORDERED: Bacitracin OINTMENT* 0.5% 0.5 oz TUBE ONE (14:38)
[2018-07-19] MEDS ORDERED: Lidocain 1% EPI 1:100,000 * 30 ML MDV ONE (14:38)
[2018-07-19] MEDS ORDERED: Propofol* 10 MG/ML 20 ML BTL ONE (14:59)
[2018-07-19] MEDS ORDERED: Neostigmine Methylsulfate* 1 MG/ML 10 ML VIAL (1 mg/ml) ONE (14:59)
[2018-07-19] MEDS ORDERED: PROCHLORPERAZINE INJ 5 MG/ML 2 ML VIAL ONE (14:59)
[2018-07-19] MEDS ORDERED: Glycopyrrolate IV* 0.2 MG/ML 1 ML VIAL ONE (14:59)
[2018-07-19] MEDS ORDERED: Lidocaine 2% PF * 5 ML VIAL ONE (14:59)
[2018-07-19] MEDS ORDERED: Morphine VIAL* 10 MG/ML 1 ML VIAL ONE (15:18)
[2018-07-19] MEDS: fentaNYL* 50 MCG/ML 2 ML VIAL (100 MCG VIAL) IV PRN ×3 (16:12→16:21)
[2018-07-19] MEDS ORDERED: Acetaminophen ADULT LIQ* 650 MG/20.3 ML UDC ONE (16:56)
[2018-07-19] MEDS ORDERED: oxyCODONE ORAL.SOLN* 5 MG/5 ML UDC ONE (16:59)
[2018-07-19 17:50] VITALS: BP 156/63
--- NOTE | 2018-07-19 21:37 | OP ---
DATE OF OPERATION: 07/19/18 - [facility] DATE OF : 82 ATTENDING SURGEON: Terrell Miranda MD VALIDATION LEADER: None. ANESTHESIA: General. PRE-OP DIAGNOSES: Turbinate hypertrophy and chronic tonsillitis. POST-OP DIAGNOSES: Turbinate hypertrophy and chronic tonsillitis. OPERATIVE PROCEDURE: Bilateral excision of chelle bullosa, bilateral inferior turbinate reduction, bilateral tonsillectomy. SPECIMENS: Fragments of right and left middle turbinates to Pathology and then right and left tonsils to Pathology. ESTIMATED BLOOD LOSS: Less than 30 cc. INDICATION: This is a 38-year-old woman with longstanding history of nasal airway obstruction secondary to severe allergic rhinitis, who has continued persistent almost total nasal airway obstruction despite medical management and she has also been having problems with recurrent acute tonsillitis over the course of the past year or so. The decision was made to bring the patient to the operating room to remove her tonsils and improve her nasal breathing by reducing the prominence of both her inferior and middle turbinates. DESCRIPTION OF PROCEDURE: On 07/19/18, the patient was brought to the operating room, general anesthesia was induced, and an oral endotracheal tube was placed. The patient was draped and a time-out was performed. Both nasal cavities were decongested with topical cottonoid soaked in Afrin and 4% lidocaine. The inferior turbinates were then infiltrated with 1% lidocaine with epinephrine, as were the middle turbinates and the roots of the middle turbinates. Once adequate time had been allowed for vasoconstriction, the procedure was begun. The inferior turbinates were each medialized. Multiple passes were made through each turbinate, approximately 4 to 5 passes through each turbinate with Elmed bipolar device and then the turbinates were outfractured. Once the inferior turbinates were treated, the middle turbinates were evaluated endoscopically. The procedure was begun on the left side. A sickle knife was used to incise the face of the middle turbinate entering the middle turbinate air-cell or chelle bullosa. The lateral portion of the middle turbinate was then resected with angled and straight through-cutting instrumentation. There was minimal bleeding for this portion of the procedure. The right nasal cavity was then entered with a 0-degree endoscope, and again, a sickle knife was used to incise the face of the middle turbinate entering the middle turbinate air-cell and the lateral portion of the middle turbinate was resected with a variety of through-cutting instruments. There was minimal bleeding on the side as well. Once the turbinate work was done, the table was turned 90 degrees. A head-wrap was applied and a McIvor mouth gag was used to facilitate exposure of the oropharynx. This was suspended from the Rollins stand. The right tonsil was grasped with a straight Allis forceps, retracted medially , and dissected free of its fossa with the coblation device at a setting of 7 and 3. There was minimal bleeding. The left tonsil was removed in an identical fashion, again utilizing the coblation device and again with minimal bleeding. Once the tonsils were removed, the superior and inferior pole regions were prophylactically cauterized with the bipolar function on the device. The mouth gag was then let down for a period of a minute. It was then opened again. There was no evidence of active bleeding. An orogastric tube was passed into the stomach and the stomach contents were evacuated. The patient was then returned to the care of the anesthesiologist, extubated, and delivered to the PACU in stable condition. [id number]/[facility] #: [id number] ED[place]
[2018-07-22] MEDS ORDERED: Scopolamine PATCH Remove* 1 NOTE MISC PATCH OFF ONE (05:24)
== END 2018-07-19 17:52 | disposition home or self-care (01) ==
LOC: OR 11:17
PROVIDERS: ATTEND Otolaryngology
DX: J34.3 Hypertrophy of nasal turbinates (principal); J35.01 Chronic tonsillitis; J30.9 Allergic rhinitis, unspecified; R07.0 Pain in throat
CPT/HCPCS: 88304; A9270-GY; J0780; J2250; J2270; J2704; J2710; J3010; J8540

== ENCOUNTER 2019-01-24 09:23 | Emergency (ER) | payer OTHER ==
--- NOTE | 2019-01-24 11:30 | UC ---
UC General HPI - HPI Summary HPI Summary: ONE WEEK OF SHARP RIGHT FLANK PAIN AND LOWER BACK PAIN WITH TINGLING SENSATIONS IN HER RIGHT LEG. DENIES ANY INJURY. NO URINARY SYMPTOMS. NO FEVER, NAUSEA/ VOMITING. SYMPTOMS ARE WORSE AT NIGHTTIME. - History of Current Complaint Chief Complaint: UCBackPain Stated Complaint: NUMBNESS Time Seen by Provider: 01/24/19 10:51 Hx Obtained From: Patient Hx Last Menstrual Period: hyster Onset/Duration: Gradual Onset, Lasting Days, Still Present Timing: Constant Onset Severity: Moderate Current Severity: Moderate Pain Intensity: 8 - Allergy/Home Medications Allergies/Adverse Reactions: Allergies Allergy/AdvReac Type Severity Reaction Status Date / Time No Known Allergies Allergy Verified 01/24/19 09:33 PMH/Surg Hx/FS Hx/Imm Hx Previously Healthy: Yes Other History Of: Negative For: Anticoagulant Therapy - Surgical History Surgical History: Yes Surgery Procedure, Year, and Place: TUBAL 1999,R breast biopsy 2013, HYSTERECTOMY 2016 tonsils - Family History Known Family History: Positive: Cardiac Disease - "My Grandmother when she was in her late 60's", Other - MOTHER WITH MIGRAINES - Social History Alcohol Use: Occasionally Alcohol Amount: PT drinks wine a few times a week. Substance Use Type: None Smoking Status (MU): Never Smoked Tobacco Have You Smoked in the Last Year: No Household Exposure Type: Cigarettes Review of Systems All Other Systems Reviewed And Are Negative: Yes Constitutional: Positive: Negative Skin: Positive: Negative Respiratory: Positive: Negative Cardiovascular: Positive: Negative Gastrointestinal: Positive: Negative Genitourinary: Positive: Negative Musculoskeletal: Positive: Myalgia Neurological: Positive: Paresthesia Physical Exam Triage Information Reviewed: Yes Appearance: Well-Appearing, No Pain Distress, Well-Nourished Vital Signs: Initial Vital Signs Temp 98 F 01/24/19 09:30 Pulse 75 01/24/19 09:30 Resp 16 01/24/19 09:30 BP 131/78 01/24/19 09:30 Pulse Ox 99 01/24/19 09:30 Vital Signs Reviewed: Yes Eyes: Positive: Conjunctiva Clear ENT: Positive: Hearing grossly normal Neck: Positive: Supple Respiratory: Positive: No respiratory distress, No accessory muscle use Cardiovascular: Positive: Pulses Normal Abdomen Description: Positive: Soft, CVA Tenderness (R), Other: - DIFFUSELY TENDER ABDOMEN. WORSE RLQ. NO REBOUND OR RIGIDITY. EQUIVOCAL PSOAS AND OBTURATOR SIGNS. Negative: CVA Tenderness (L), Distended, Guarding Musculoskeletal: Positive: No Edema Neurological: Positive: Alert, Other: - NEG STRAIGHT LEG RAISE Psychological: Positive: Age Appropriate Behavior Skin: Negative: Rashes Diagnostics - Radiology CT ABD/PELVIS W/O CONTRAST Radiology Interpretation Completed By: Radiologist Summary of Radiographic Findings: NO HYDRONEPHROSIS OR NEPHROLITHIASIS. NO ACUTE NONCONTRAST CT PATHOLOGY OF THE VISUALIZED ABDOMEN OR PELVIS. Course/Dx - Course Course Of Treatment: UNCLEAR ETIOLOGY OF PATIENT'S SYMPTOMS. SHE IS COMPLAINING OF RIGHT FLANK PAIN , LOW BACK PAIN AND PARESTHESIAS IN HER RIGHT LEG. NO SADDLE ANESTHESIA OR LOSS OF BOWEL OR BLADDER CONTROL. EXAM IS SUSPICIOUS FOR APPENDICITIS ALTHOUGH NONCONTRAST CT SCAN DOES NOT SHOW ANY PATHOLOGY IN THE APPENDIX. DISCUSSED [place] [facility] [facility] [place] HOWEVER PATIENT DECLINES AND PREFERS CAREFUL OBSERVATION AT HOME. CBC, CMP AND LIPASE DRAWN. ADVISED TO GO TO THE ER WITHOUT FAIL IF HER SYMPTOMS WORSEN. ZOFRAN GIVEN FOR NAUSEA IF NEEDED. - Diagnoses Provider Diagnosis: Diffuse abdominal pain Discharge - Sign-Out/Discharge Documenting (check all that apply): Patient Departure All imaging exams completed and their final reports reviewed: Yes - Discharge Plan Condition: Stable Disposition: HOME Prescriptions: Ondansetron ODT TAB* [Zofran Odt TAB*] 4 mg PO Q6H PRN #20 tab.odt PRN Reason: Nausea/Vomiting Patient Education Materials: Paresthesia (ED), Abdominal Pain (ED), Flank Pain (ED) Referrals: Lesvia Sun MD [Primary Care Provider] - If Needed Additional Instructions: YOUR URINE HAS BEEN SENT FOR CULTURE TO ENSURE NO INFECTION. CT SCAN OF THE ABDOMEN AND PELVIS WITHOUT CONTRAST TODAY WAS UNREMARKABLE. BASED ON YOUR PHYSICAL EXAM FINDINGS I'M CONCERNED THAT YOU MAY BE DEVELOPING AN APPENDICITIS. GO TO THE ER WITHOUT FAIL IF YOU DEVELOP WORSENING PAIN, FEVER, NAUSEA/VOMITING OR ANY OTHER CONCERNING SYMPTOMS. LABS DRAWN TODAY FOR FURTHER EVALUATION INCLUDED BLOOD COUNT, METABOLIC PANEL AND LIPASE. ABDOMINAL PAIN: There are many causes of abdominal pain. Pain can mean a serious problem requiring surgery (such as appendicitis), or an innocent problem which goes away on its own (such as a viral infection). Often, time must pass to determine the cause of pain. The physician does not feel that hospitalization is necessary, at present. Conditions may change, however, within the next 24 hours. GO TO THE ER WITHOUT FAIL IF ANY OF THE FOLLOWING OCCUR: 1) Pain which becomes more severe, steady, or becomes concentrated in one specific area. Also, pain which is more severe with movement or coughing. 2) Vomiting which persists or becomes more frequent. 3) Blood in the vomitus, urine, or bowel movements. Blood in the stool may have a tarry or black appearance. 4) Shaking chills or fever greater than 100 degrees F. 5) The abdomen becomes more distended or swollen. 6) Bowel movements cease. 7) Failure to improve as expected. OBSERVATION FOR APPENDICITIS: At this time, the abdominal pain does not seem to be appendicitis. Our next "test" will be passage of time. If you have early appendicitis, signs will appear to help us make the diagnosis. Most of the time, the pain goes away. In these cases, the pain is usually due to a virus in the lymph glands near the appendix, or due to an ovarian cyst or ovulation. Unless the pain is gone, you should come back for a recheck. This is usually done in 8 to 12 hours. Be sure you understand your follow-up instructions. GO TO THE ER IMMEDIATELY IF: (1) the pain becomes much more severe and sharply increases with movement or coughing, (2) vomiting becomes frequent, (3) there is blood in the vomit, urine, or bowel movements, (4) there are shaking chills or fever, or (5) the abdomen becomes more distended or swollen. - Billing Disposition and Condition Condition: STABLE Disposition: Home
[2019-01-24 12:17] VITALS: BP 120/80
[2019-01-24 19:10] LABS: ABS Basophils 0.1 10^3/ul (0-0.2); ABS Eosinophils 0.3 10^3/ul (0-0.6); ABS Lymphocytes 2.4 10^3/ul (1.0-4.8); ABS Monocytes 0.6 10^3/ul (0-0.8); ABS Neutrophils 6.6 10^3/ul (1.5-7.7); Hematocrit 39 % (35-47); Hemoglobin 13.2 g/dL (12.0-16.0); Lymphocyte % 24.4 %; Mean Corpuscular HGB Conc 34 g/dL (31-36); Mean Corpuscular Hemoglobin 29 pg (27-31); Mean Corpuscular Volume 85 fL (80-97); Mean Platelet Volume 8.5 fL (7.4-10.4); Nucleated Red Blood Cells % 0.1; Platelet Count 283 10^3/uL (150-450); Red Blood Count 4.55 10^6 /uL (3.70-4.87); Red Cell Distribution Width 14 % (10-15); White Blood Count 9.9 10^3/uL (3.5-10.8)
[2019-01-24 19:16] LABS: Albumin 4.5 g/dL (3.2-5.2); Calcium 9.8 mg/dL (8.6-10.3); Potassium 4.1 mmol/L (3.5-5.0); Total Bilirubin 0.4 mg/dL (0.2-1.0)
[2019-01-24 19:22] LABS: Albumin/Globulin Ratio 1.5 (1-3); BUN/Creatinine Ratio 14.7 (8-20); EGFR African American 105.2 (>60); Total Protein 7.5 g/dL (6.4-8.9)
== END 2019-01-24 12:24 | disposition home or self-care (01) ==
LOC: UCEAST 09:23
DX: R10.9 Unspecified abdominal pain (principal)
CPT/HCPCS: 36415; 74176; 80053; 81002; 83690; 85025; 87086; 99211; G0463

== ENCOUNTER 2019-04-29 08:05 | Emergency (ER) | payer OTHER ==
[2019-04-29 08:18] VITALS: BP 120/82
--- NOTE | 2019-04-29 09:46 | UC ---
Eye Complaint HPI - HPI Summary HPI Summary: 39 yo with one day of bilateral eye redness, mild lid swelling, and drainage. Works at [employer] and was advised not to work today because of associated risk of spreading infection. She has had no known infectious contact. . - History of Current Complaint Chief Complaint: UCEye Stated Complaint: EYE RRITATION Time Seen by Provider: 04/29/19 09:45 Hx Obtained From: Patient Hx Last Menstrual Period: hyster Onset/Duration: Sudden Onset, Lasting Hours Timing: Constant Severity Initially: Moderate Severity Currently: Mild Pain Intensity: 6 Location of Injury: Conjunctiva Character: Dull Aggravating Factor(s): Nothing Alleviating Factor(s): Nothing Associated Signs And Symptoms: Positive: Drainage (Clear) - Risk Factors Penetrating Injury Risk Factor: Negative Globe Rupture Risk Factors: Negative Acute Glaucoma Risk Factors: Negative Optic Artery Occlusion Risk Factors: Negative - Allergies/Home Medications Allergies/Adverse Reactions: Allergies Allergy/AdvReac Type Severity Reaction Status Date / Time No Known Allergies Allergy Verified 04/29/19 08:18 PMH/Surg Hx/FS Hx/Imm Hx Previously Healthy: Yes Other History Of: Negative For: Anticoagulant Therapy - Surgical History Surgical History: Yes Surgery Procedure, Year, and Place: TUBAL 2000,R breast biopsy 2014, HYSTERECTOMY 2016 tonsils - Family History Known Family History: Positive: Cardiac Disease - "My Grandmother when she was in her late 60's", Other - MOTHER WITH MIGRAINES - Social History Occupation: Employed Full-time Lives: With Family Alcohol Use: Occasionally Alcohol Amount: PT drinks wine a few times a week. Substance Use Type: None Smoking Status (MU): Never Smoked Tobacco Have You Smoked in the Last Year: No Household Exposure Type: Cigarettes Review of Systems All Other Systems Reviewed And Are Negative: Yes Constitutional: Positive: Negative Skin: Positive: Negative Eyes: Positive: Drainage, Eye Redness. Negative: Blurred Vision ENT: Positive: Negative Respiratory: Positive: Negative Cardiovascular: Positive: Negative Neurological: Positive: Negative Is Patient Immunocompromised?: No Physical Exam Triage Information Reviewed: Yes Appearance: Well-Appearing, No Pain Distress Vital Signs: Initial Vital Signs Temp 98.8 F 04/29/19 08:14 Pulse 72 04/29/19 08:14 Resp 18 04/29/19 08:14 BP 120/82 04/29/19 08:14 Pulse Ox 99 04/29/19 08:14 Eyes: Positive: Conjunctiva Inflamed, Discharge - clear ENT: Positive: Pharynx normal Neck: Positive: Supple, Nontender, No Lymphadenopathy Respiratory: Positive: Lungs clear, Normal breath sounds Cardiovascular: Positive: RRR, No Murmur Musculoskeletal Exam: Normal Neurological Exam: Normal Psychological Exam: Normal Skin Exam: Normal Eye Complaint Course/Dx - Course Course Of Treatment: Antibiotic drops to address acute conjunctivitis - Differential Dx/Diagnosis Differential Diagnosis/HQI/PQRI: Conjunctivitis Provider Diagnosis: Conjunctivitis Discharge ED - Sign-Out/Discharge Documenting (check all that apply): Patient Departure All imaging exams completed and their final reports reviewed: No Studies - Discharge Plan Condition: Good Disposition: HOME Prescriptions: Polymyx/Trimethoprim OPTH* [Polytrim OPHTH*] 2 drop BOTH EYES QID #1 btl Patient Education Materials: Conjunctivitis (ED) Forms: *Work Release Referrals: Lesvia Sun MD [Primary Care Provider] - Additional Instructions: Warm compress your eyes for comfort. use drops every 1 to 2 hours today in both eyes, the 4 times daily for the next 4 days. Follow up if you have persistent drainage or increasing eye pain. - Billing Disposition and Condition Condition: GOOD Disposition: Home
== END 2019-04-29 09:59 | disposition home or self-care (01) ==
LOC: UCEAST 08:05
DX: H10.9 Unspecified conjunctivitis (principal)
CPT/HCPCS: 99212; G0463